=== PATIENT | male | born 2000 | race Caucasian/White ===

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

== ENCOUNTER → 2018-02-04 | Outpatient (CLI) | payer OTHER ==
[~2018-02-04] MED LIST changes: +HUMALOG100 UNIT/2 SQ; +PRILOSEC20 M1 PO; -PRILOSEC20 MG PO
[2018-02-04 16:18] LABS: BILIRUBIN NEGATIVE (NEGATIVE); BLOOD NEGATIVE (NEGATIVE); CLARITY CLEAR (CLEAR); COLOR YELLOW (YELLOW); GLUCOSE 3+ (NEGATIVE); KETONE NEGATIVE (NEGATIVE); LEUKO ESTERASE NEGATIVE (NEGATIVE); NITRITE NEGATIVE (NEGATIVE); PH 5.5 (5.0-9.0); UROBILINOGEN 0.2 E.U./dl (0.2-1.0)
[2018-02-04 16:26] LABS: BACTERIA TRACE; EPITHELIAL CELLS 0-2; WBC 0-2 wbc/hpf (0-5)
[2018-02-04 16:48] LABS: ALBUMIN 3.8 gm/dl (3.1-4.5); BILIRUBIN, DIRECT 0.1 mg/dL (0.0-0.2); BUN 11 mg/dl (7-24); CHLORIDE 97 mmol/L (98-107); CHOLESTEROL 128 mg/dL (<200); CREATININE 0.86 mg/dL (0.70-1.30); HDL CHOLESTEROL 28 mg/dl (40-60); LDL CHOLESTEROL 58 mg/dL (9-159); POTASSIUM 4.4 mmol/L (3.5-5.1); SGOT/AST 8 IU/L (3-35); SGPT/ALT 24 U/L (12-78); SODIUM 135 mmol/L (136-145); TOTAL PROTEIN 7.4 gm/dL (6.4-8.2); TRIGLYCERIDES 209 mg/dl (<150); VLDL CHOLESTEROL 42 mg/dL (6-40)
[2018-02-04 16:54] LABS: ALKALINE PHOSPHATASE 68 U/L (45-117); FREE T4 1.09 ng/dl (0.76-1.46)
== END | disposition home or self-care (01) ==
LOC: LAB 15:49
PROVIDERS: Internal Medicine
DX: E78.5 Hyperlipidemia, unspecified (principal); E11.65 Type 2 diabetes mellitus with hyperglycemia; E04.9 Nontoxic goiter, unspecified; E55.9 Vitamin D deficiency, unspecified

== ENCOUNTER 2018-03-24 11:21 | Emergency (ER) | payer OTHER ==
[~2018-03-24] VITALS: Ht 182.8 cm; Wt 90.7 kg
[2018-03-24 11:23] VITALS: BP 115/63
[2018-03-24 12:47] LABS: HEMATOCRIT 44.1 % (42.0-52.0); HEMOGLOBIN 15.7 g/dl (14.0-18.0); MEAN CELL VOLUME 84.5 fl (80.0-94.0); MEAN CORPUSCULAR HGB 30.1 pg (27.0-31.0); MEAN CORPUSCULAR HGB CONC 35.6 g/dl (33.0-37.0); MEAN PLATELET VOLUME 11.5 fl (9.6-12.3); PLATELET COUNT AUTOMATED 204 10*3/uL (130-400); RED BLOOD COUNT 5.22 10*6/uL (4.50-5.90); RED CELL DISTRI WIDTH 12.1 % (0-14.5); WHITE BLOOD COUNT 5.1 10*3/uL (4.8-10.8)
[2018-03-24 13:00] LABS: ALBUMIN 3.4 gm/dl (3.1-4.5); ALKALINE PHOSPHATASE 88 U/L (45-117); BUN 17 mg/dl (7-24); CHLORIDE 102 mmol/L (98-107); CREATININE 0.74 mg/dL (0.70-1.30); LIPASE 128 U/L (73-393); POTASSIUM 4.5 mmol/L (3.5-5.1); SGOT/AST 21 IU/L (3-35); SGPT/ALT 17 U/L (12-78); SODIUM 135 mmol/L (136-145); TOTAL PROTEIN 6.9 gm/dL (6.4-8.2)
[2018-03-24 13:09] LABS: ATYPICAL LYMPHS 1 % (0-0); BASOPHILS 2 % (0-1); TOTAL CELLS COUNTED 100 #CELLS
[2018-03-24 13:10] LABS: PLATELET SUFFICIENCY NORMAL (NORMAL)
[2018-03-24 13:43] LABS: BILIRUBIN NEGATIVE (NEGATIVE); BLOOD NEGATIVE (NEGATIVE); CLARITY CLEAR (CLEAR); COLOR YELLOW (YELLOW); GLUCOSE 3+ (NEGATIVE); KETONE 1+ (NEGATIVE); LEUKO ESTERASE NEGATIVE (NEGATIVE); NITRITE NEGATIVE (NEGATIVE); SPECIFIC GRAVITY <= 1.005 (1.005-1.030); UROBILINOGEN 0.2 E.U./dl (0.2-1.0)
[2018-03-24 13:51] LABS: BACTERIA TRACE; EPITHELIAL CELLS 0-2; RBC 0-2 rbc/hpf (0-2)
[2018-05-12] MEDS ORDERED: TOUJEO SOL300 UNIT/1 SQ (21:22)
[2018-05-12] MEDS ORDERED: ADMELOG100 UNIT/1 SQ (21:26)
[2018-05-12] MEDS ORDERED: DIALYVITE V5000 UNIT PO (21:26)
[2018-05-12] MEDS ORDERED: ALOGLIPTIN6.25 MG PO (21:27)
== END 2018-03-24 15:21 | disposition home or self-care (01) ==
LOC: ED 11:21
PROVIDERS: Physician Assistant
DX: E10.65 Type 1 diabetes mellitus with hyperglycemia (principal); R10.84 Generalized abdominal pain; Z98.890 Other specified postprocedural states; Z79.4 Long term (current) use of insulin

== ENCOUNTER → 2018-06-02 | Outpatient (CLI) | payer OTHER ==
[~2018-06-02] MED LIST changes: +ADMELOG100 UNIT/1 SQ; +ALOGLIPTIN6.25 MG PO; +DIALYVITE V5000 UNIT PO; +TOUJEO SOL300 UNIT/1 SQ
[2018-06-02 16:02] LABS: BASO # 0.1 10*3/uL (0.0-0.1); BASO % 0.9 % (0.0-1.0); EOS # 0.2 10*3/uL (0.0-0.4); EOS % 2.8 % (1.0-4.0); HEMATOCRIT 45.9 % (42.0-52.0); HEMOGLOBIN 16.7 g/dl (14.0-18.0); LYMPH # 1.6 10*3/uL (1.3-4.4); LYMPH % 30.6 % (27.0-41.0); MEAN CELL VOLUME 85.3 fl (80.0-94.0); MEAN CORPUSCULAR HGB CONC 36.4 g/dl (33.0-37.0); MEAN PLATELET VOLUME 11.6 fl (9.6-12.3); MONO # 0.5 10*3/uL (0.1-1.0); MONO % 9.4 % (3.0-9.0); NEUT % 55.9 % (47.0-73.0); PLATELET COUNT AUTOMATED 207 10*3/uL (130-400); RED BLOOD COUNT 5.38 10*6/uL (4.50-5.90); RED CELL DISTRI WIDTH 11.5 % (0-14.5); WHITE BLOOD COUNT 5.3 10*3/uL (4.8-10.8)
[2018-06-02 16:22] LABS: ALBUMIN 3.7 gm/dl (3.1-4.5); ALKALINE PHOSPHATASE 174 U/L (45-117); BUN 26 mg/dl (7-24); CHLORIDE 88 mmol/L (98-107); CREATININE 0.91 mg/dL (0.70-1.30); POTASSIUM 4.6 mmol/L (3.5-5.1); SGOT/AST 12 IU/L (3-35); SGPT/ALT 17 U/L (12-78); SODIUM 128 mmol/L (136-145); TOTAL PROTEIN 7.4 gm/dL (6.4-8.2)
== END | disposition home or self-care (01) ==
LOC: LAB 15:25
PROVIDERS: Internal Medicine
DX: M54.9 Dorsalgia, unspecified (principal); M54.2 Cervicalgia

== ENCOUNTER 2018-06-30 15:02 | Emergency (ER) | payer OTHER ==
[~2018-06-30] VITALS: Wt 81.6 kg
[2018-06-30 15:05] VITALS: BP 115/61
[2018-06-30 17:19] LABS: BASO % 0.3 % (0.0-1.0); EOS # 0.1 10*3/uL (0.0-0.4); EOS % 0.7 % (1.0-4.0); HEMATOCRIT 48.2 % (42.0-52.0); HEMOGLOBIN 17.3 g/dl (14.0-18.0); LYMPH # 0.9 10*3/uL (1.3-4.4); LYMPH % 8.3 % (27.0-41.0); MEAN CELL VOLUME 86.5 fl (80.0-94.0); MEAN CORPUSCULAR HGB 31.1 pg (27.0-31.0); MEAN CORPUSCULAR HGB CONC 35.9 g/dl (33.0-37.0); MEAN PLATELET VOLUME 10.8 fl (9.6-12.3); MONO # 0.8 10*3/uL (0.1-1.0); MONO % 6.9 % (3.0-9.0); NEUT # 9.4 10*3/uL (2.3-7.9); NEUT % 83.4 % (47.0-73.0); PLATELET COUNT AUTOMATED 223 10*3/uL (130-400); RED BLOOD COUNT 5.57 10*6/uL (4.50-5.90); WHITE BLOOD COUNT 11.3 10*3/uL (4.8-10.8)
[2018-06-30 17:20] LABS: ABG BASE EXCESS -6.9 mmol/L (-2.0-2.0); ABG HCO3 17.7 mmol/l (22-26); ABG O2 SATURATION 99.2 % (95-97); ARTERIAL BLOOD GAS PCO2 33.2 mmHg (35-45); ARTERIAL BLOOD GAS PH 7.341 (7.35-7.45)
[2018-06-30 17:27] LABS: INTERNATIONAL NORM RATIO 0.9 (2.0-3.5)
[2018-06-30 17:36] LABS: ALBUMIN 3.5 gm/dl (3.1-4.5); ALKALINE PHOSPHATASE 98 U/L (45-117); BUN 15 mg/dl (7-24); CHLORIDE 101 mmol/L (98-107); CREATININE 0.85 mg/dL (0.70-1.30); LIPASE 82 U/L (73-393); POTASSIUM 4.2 mmol/L (3.5-5.1); SGOT/AST 11 IU/L (3-35); SGPT/ALT 24 U/L (12-78); SODIUM 135 mmol/L (136-145); TOTAL PROTEIN 7.7 gm/dL (6.4-8.2)
[2018-06-30 17:37] LABS: TROPONIN I < 0.015 ng/ml (<0.045)
[2018-06-30 18:19] LABS: BILIRUBIN 2+ (NEGATIVE); BLOOD NEGATIVE (NEGATIVE); CLARITY CLEAR (CLEAR); COLOR YELLOW (YELLOW); GLUCOSE 3+ (NEGATIVE); KETONE 3+ (NEGATIVE); LEUKO ESTERASE NEGATIVE (NEGATIVE); NITRITE NEGATIVE (NEGATIVE); SPECIFIC GRAVITY 1.015 (1.005-1.030); UROBILINOGEN 0.2 E.U./dl (0.2-1.0)
[2018-06-30 18:27] LABS: EPITHELIAL CELLS 0-2; MUCOUS 1+; WBC 0-2 wbc/hpf (0-5)
== END 2018-06-30 18:27 | disposition left against medical advice (07) ==
LOC: ED 15:02
PROVIDERS: Physician Assistant
DX: R11.10 Vomiting, unspecified (principal); R19.7 Diarrhea, unspecified; R05 Cough; R10.84 Generalized abdominal pain; E10.9 Type 1 diabetes mellitus without complications; Z79.899 Other long term (current) drug therapy; Z79.4 Long term (current) use of insulin

== ENCOUNTER 2018-12-01 14:32 | Emergency (ER) | payer OTHER ==
[~2018-12-01] VITALS: Ht 182.8 cm; Wt 80.7 kg
[2018-12-01 14:33] VITALS: BP 107/64
[2018-12-01] MEDS ORDERED: DOXYCYCLINE100 M3 PO (14:43)
== END 2018-12-01 15:02 | disposition home or self-care (01) ==
LOC: ED 14:32
DX: L02.414 Cutaneous abscess of left upper limb (principal); E11.9 Type 2 diabetes mellitus without complications; Z79.899 Other long term (current) drug therapy

== ENCOUNTER 2019-02-16 13:48 | Emergency (ER) | payer OTHER ==
[~2019-02-16] VITALS: Wt 59.0 kg
--- NOTE | ~2019-02-16 | EKG ---
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
[~2019-02-16 13:48] MED LIST changes: +DOXYCYCLINE100 M3 PO
[2019-02-16 14:15] LABS: BASO % 0.6 % (0.0-1.0); EOS # 0.1 10*3/uL (0.0-0.4); EOS % 2.5 % (1.0-4.0); HEMATOCRIT 40.8 % (42.0-52.0); HEMOGLOBIN 14.7 g/dl (14.0-18.0); LYMPH # 1.4 10*3/uL (1.3-4.4); LYMPH % 26.4 % (27.0-41.0); MEAN CELL VOLUME 87.4 fl (80.0-94.0); MEAN CORPUSCULAR HGB 31.5 pg (27.0-31.0); MEAN PLATELET VOLUME 11.3 fl (9.6-12.3); MONO # 0.5 10*3/uL (0.1-1.0); MONO % 8.6 % (3.0-9.0); NEUT # 3.3 10*3/uL (2.3-7.9); NEUT % 61.7 % (47.0-73.0); PLATELET COUNT AUTOMATED 187 10*3/uL (130-400); RED BLOOD COUNT 4.67 10*6/uL (4.50-5.90); RED CELL DISTRI WIDTH 11.9 % (0-14.5); WHITE BLOOD COUNT 5.3 10*3/uL (4.8-10.8)
[2019-02-16 14:25] LABS: ACT PARTIAL THROMBO TIME 26.5 SECONDS (20.0-32.1)
[2019-02-16 14:35] LABS: ALBUMIN 3.5 gm/dl (3.1-4.5); ALKALINE PHOSPHATASE 106 U/L (45-117); BUN 20 mg/dl (7-24); CHLORIDE 101 mmol/L (98-107); CREATININE 0.74 mg/dL (0.70-1.30); LIPASE 114 U/L (73-393); POTASSIUM 4.5 mmol/L (3.5-5.1); SGOT/AST 8 IU/L (3-35); SGPT/ALT 12 U/L (12-78); SODIUM 132 mmol/L (136-145); TOTAL PROTEIN 6.1 gm/dL (6.4-8.2)
[2019-02-16 14:52] LABS: TROPONIN I < 0.015 ng/ml (<0.045)
[2019-02-16 15:28] LABS: BILIRUBIN NEGATIVE (NEGATIVE); BLOOD NEGATIVE (NEGATIVE); CLARITY CLEAR (CLEAR); COLOR YELLOW (YELLOW); GLUCOSE 3+ (NEGATIVE); KETONE NEGATIVE (NEGATIVE); LEUKO ESTERASE NEGATIVE (NEGATIVE); NITRITE NEGATIVE (NEGATIVE); SPECIFIC GRAVITY <= 1.005 (1.005-1.030); UROBILINOGEN 0.2 E.U./dl (0.2-1.0)
[2019-02-16 16:00] VITALS: BP 113/61
== END 2019-02-16 17:30 | disposition home or self-care (01) ==
LOC: ED 13:48
PROVIDERS: Emergency Medicine
DX: E11.65 Type 2 diabetes mellitus with hyperglycemia (principal); K21.9 Gastro-esophageal reflux disease without esophagitis; Z79.2 Long term (current) use of antibiotics; Z79.899 Other long term (current) drug therapy

== ENCOUNTER → 2019-02-21 | Outpatient (CLI) | payer OTHER ==
[~2019-02-21] MED LIST changes: +AVPAK AZITHROM250 MG PO
[2019-02-21 17:13] LABS: ALBUMIN 4.2 gm/dl (3.1-4.5); ALKALINE PHOSPHATASE 61 U/L (45-117); BUN 18 mg/dl (7-24); CHLORIDE 97 mmol/L (98-107); CHOLESTEROL 150 mg/dL (<200); CREATININE 0.76 mg/dL (0.70-1.30); HDL CHOLESTEROL 43 mg/dl (40-60); LDL CHOLESTEROL 87 mg/dL (9-159); SGOT/AST 6 IU/L (3-35); SGPT/ALT 12 U/L (12-78); SODIUM 132 mmol/L (136-145); TOTAL PROTEIN 7.5 gm/dL (6.4-8.2); TRIGLYCERIDES 101 mg/dl (<150); VLDL CHOLESTEROL 20 mg/dL (6-40)
[2019-02-22 11:08] LABS: CREATININE,URINE 107.2 mg/dL (Not Estab.); MICRO ALBUMIN/CRE RATIO 4.9 (0.0-30.0)
[2019-02-23 15:06] LABS: GLUTAMIC ACID DECARB AB 143008 36.7 U/mL (0.0-5.0)
== END | disposition home or self-care (01) ==
LOC: LAB 16:00
PROVIDERS: Internal Medicine Endocrinology, Diabetes & Metabolism
DX: E10.65 Type 1 diabetes mellitus with hyperglycemia (principal); E55.9 Vitamin D deficiency, unspecified

== ENCOUNTER 2019-03-02 07:29 | Emergency (ER) | payer OTHER ==
[~2019-03-02] VITALS: Ht 182.8 cm; Wt 80.7 kg
--- NOTE | ~2019-03-02 | EKG ---
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
[~2019-03-02 07:29] MED LIST changes: -AVPAK AZITHROM250 MG PO
[2019-03-02 08:12] LABS: BASO % 0.9 % (0.0-1.0); EOS # 0.2 10*3/uL (0.0-0.4); EOS % 4.7 % (1.0-4.0); HEMATOCRIT 44.6 % (42.0-52.0); HEMOGLOBIN 15.7 g/dl (14.0-18.0); LYMPH # 1.5 10*3/uL (1.3-4.4); LYMPH % 32.6 % (27.0-41.0); MEAN CELL VOLUME 88.7 fl (80.0-94.0); MEAN CORPUSCULAR HGB 31.2 pg (27.0-31.0); MEAN CORPUSCULAR HGB CONC 35.2 g/dl (33.0-37.0); MONO # 0.4 10*3/uL (0.1-1.0); MONO % 9.8 % (3.0-9.0); NEUT # 2.3 10*3/uL (2.3-7.9); NEUT % 51.8 % (47.0-73.0); PLATELET COUNT AUTOMATED 202 10*3/uL (130-400); RED BLOOD COUNT 5.03 10*6/uL (4.50-5.90); RED CELL DISTRI WIDTH 12.2 % (0-14.5); WHITE BLOOD COUNT 4.5 10*3/uL (4.8-10.8)
[2019-03-02 08:22] LABS: ACT PARTIAL THROMBO TIME 26.9 SECONDS (20.0-32.1)
[2019-03-02 08:27] LABS: ALBUMIN 3.5 gm/dl (3.1-4.5); ALKALINE PHOSPHATASE 52 U/L (45-117); BUN 10 mg/dl (7-24); CHLORIDE 108 mmol/L (98-107); CREATININE 0.67 mg/dL (0.70-1.30); LIPASE 87 U/L (73-393); POTASSIUM 3.4 mmol/L (3.5-5.1); SGOT/AST 6 IU/L (3-35); SGPT/ALT 13 U/L (12-78); SODIUM 141 mmol/L (136-145); TOTAL PROTEIN 6.4 gm/dL (6.4-8.2)
[2019-03-02 08:33] LABS: TROPONIN I < 0.015 ng/ml (<0.045)
[2019-03-02 08:45] LABS: BILIRUBIN NEGATIVE (NEGATIVE); BLOOD NEGATIVE (NEGATIVE); CLARITY CLEAR (CLEAR); COLOR YELLOW (YELLOW); GLUCOSE 3+ (NEGATIVE); KETONE NEGATIVE (NEGATIVE); LEUKO ESTERASE NEGATIVE (NEGATIVE); NITRITE NEGATIVE (NEGATIVE); UROBILINOGEN 0.2 E.U./dl (0.2-1.0)
[2019-03-02 09:03] LABS: EPITHELIAL CELLS 0-2; RBC 0-2 rbc/hpf (0-2); WBC 0-2 wbc/hpf (0-5)
[2019-03-02 14:48] VITALS: BP 106/57
[2019-03-03] MEDS ORDERED: AVPAK AZITHROM250 MG PO (16:44)
== END 2019-03-02 14:48 | disposition home or self-care (01) ==
LOC: ED 07:29
PROVIDERS: Emergency Medicine
DX: R06.00 Dyspnea, unspecified (principal); R07.89 Other chest pain; R19.7 Diarrhea, unspecified; I10 Essential (primary) hypertension; E10.9 Type 1 diabetes mellitus without complications; K21.9 Gastro-esophageal reflux disease without esophagitis; F17.200 Nicotine dependence, unspecified, uncomplicated; Z79.2 Long term (current) use of antibiotics; Z79.4 Long term (current) use of insulin

== ENCOUNTER 2019-03-03 13:24 | Emergency (ER) | payer OTHER ==
[~2019-03-03] VITALS: Wt 80.7 kg
--- NOTE | ~2019-03-03 | EKG ---
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
[2019-03-03 13:27] VITALS: BP 107/62
[2019-03-03 13:58] LABS: BASO # 0.1 10*3/uL (0.0-0.1); BASO % 1.1 % (0.0-1.0); EOS # 0.2 10*3/uL (0.0-0.4); HEMATOCRIT 47.2 % (42.0-52.0); HEMOGLOBIN 16.4 g/dl (14.0-18.0); LYMPH # 1.6 10*3/uL (1.3-4.4); LYMPH % 30.2 % (27.0-41.0); MEAN CELL VOLUME 89.1 fl (80.0-94.0); MEAN CORPUSCULAR HGB 30.9 pg (27.0-31.0); MEAN CORPUSCULAR HGB CONC 34.7 g/dl (33.0-37.0); MEAN PLATELET VOLUME 11.1 fl (9.6-12.3); MONO # 0.5 10*3/uL (0.1-1.0); MONO % 9.5 % (3.0-9.0); NEUT # 2.9 10*3/uL (2.3-7.9); NEUT % 55.8 % (47.0-73.0); PLATELET COUNT AUTOMATED 238 10*3/uL (130-400); RED CELL DISTRI WIDTH 12.2 % (0-14.5); WHITE BLOOD COUNT 5.3 10*3/uL (4.8-10.8)
[2019-03-03 14:07] LABS: ACT PARTIAL THROMBO TIME 25.8 SECONDS (20.0-32.1); INTERNATIONAL NORM RATIO 0.9 (2.0-3.5)
[2019-03-03 14:14] LABS: ALBUMIN 3.6 gm/dl (3.1-4.5); ALKALINE PHOSPHATASE 69 U/L (45-117); BUN 10 mg/dl (7-24); CHLORIDE 105 mmol/L (98-107); CREATININE 0.69 mg/dL (0.70-1.30); LIPASE 82 U/L (73-393); POTASSIUM 4.1 mmol/L (3.5-5.1); SGOT/AST 5 IU/L (3-35); SGPT/ALT 13 U/L (12-78); SODIUM 139 mmol/L (136-145); TOTAL PROTEIN 6.9 gm/dL (6.4-8.2)
[2019-03-03 14:15] LABS: TROPONIN I < 0.015 ng/ml (<0.045)
[2019-03-03 14:40] LABS: BILIRUBIN NEGATIVE (NEGATIVE); BLOOD NEGATIVE (NEGATIVE); CLARITY CLEAR (CLEAR); COLOR YELLOW (YELLOW); GLUCOSE 3+ (NEGATIVE); KETONE NEGATIVE (NEGATIVE); LEUKO ESTERASE NEGATIVE (NEGATIVE); NITRITE NEGATIVE (NEGATIVE); UROBILINOGEN 0.2 E.U./dl (0.2-1.0)
[2019-03-03 14:56] LABS: EPITHELIAL CELLS 0-2
[2019-03-03] MEDS ORDERED: AVPAK AZITHROM250 MG PO (16:44)
== END 2019-03-03 16:50 | disposition home or self-care (01) ==
LOC: ED 13:24
PROVIDERS: Nurse Practitioner Family
DX: R09.1 Pleurisy (principal); R07.89 Other chest pain; R11.2 Nausea with vomiting, unspecified; E10.9 Type 1 diabetes mellitus without complications; E78.5 Hyperlipidemia, unspecified; K21.9 Gastro-esophageal reflux disease without esophagitis; Z79.899 Other long term (current) drug therapy

== ENCOUNTER 2019-03-31 15:35 | Emergency (ER) | payer OTHER ==
[~2019-03-31] VITALS: Ht 182.8 cm; Wt 81.6 kg
[~2019-03-31 15:35] MED LIST changes: +AVPAK AZITHROM250 MG PO
[2019-03-31 15:38] VITALS: BP 113/63
[2019-03-31 16:44] LABS: BASO # 0.1 10*3/uL (0.0-0.1); BASO % 1.3 % (0.0-1.0); EOS # 0.2 10*3/uL (0.0-0.4); EOS % 2.8 % (1.0-4.0); HEMATOCRIT 41.9 % (42.0-52.0); HEMOGLOBIN 15.3 g/dl (14.0-18.0); LYMPH # 1.7 10*3/uL (1.3-4.4); MEAN CELL VOLUME 86.2 fl (80.0-94.0); MEAN CORPUSCULAR HGB 31.5 pg (27.0-31.0); MEAN CORPUSCULAR HGB CONC 36.5 g/dl (33.0-37.0); MEAN PLATELET VOLUME 11.6 fl (9.6-12.3); MONO # 0.5 10*3/uL (0.1-1.0); MONO % 9.9 % (3.0-9.0); NEUT # 2.9 10*3/uL (2.3-7.9); NEUT % 53.8 % (47.0-73.0); PLATELET COUNT AUTOMATED 225 10*3/uL (130-400); RED BLOOD COUNT 4.86 10*6/uL (4.50-5.90); RED CELL DISTRI WIDTH 11.9 % (0-14.5); WHITE BLOOD COUNT 5.4 10*3/uL (4.8-10.8)
[2019-03-31 17:01] LABS: ALBUMIN 3.5 gm/dl (3.1-4.5); ALKALINE PHOSPHATASE 72 U/L (45-117); BUN 15 mg/dl (7-24); CHLORIDE 100 mmol/L (98-107); CREATININE 0.73 mg/dL (0.70-1.30); POTASSIUM 3.9 mmol/L (3.5-5.1); SGOT/AST 7 IU/L (3-35); SGPT/ALT 13 U/L (12-78); SODIUM 137 mmol/L (136-145); TOTAL PROTEIN 6.2 gm/dL (6.4-8.2)
[2019-03-31 17:13] LABS: BILIRUBIN NEGATIVE (NEGATIVE); BLOOD NEGATIVE (NEGATIVE); CLARITY CLEAR (CLEAR); COLOR YELLOW (YELLOW); GLUCOSE 3+ (NEGATIVE); KETONE NEGATIVE (NEGATIVE); LEUKO ESTERASE NEGATIVE (NEGATIVE); NITRITE NEGATIVE (NEGATIVE); PH 6.5 (5.0-9.0); SPECIFIC GRAVITY <= 1.005 (1.005-1.030); UROBILINOGEN 0.2 E.U./dl (0.2-1.0)
[2019-03-31 17:24] LABS: EPITHELIAL CELLS 0-2
== END 2019-03-31 17:50 | disposition home or self-care (01) ==
LOC: ED 15:35
PROVIDERS: Nurse Practitioner Family
DX: E10.65 Type 1 diabetes mellitus with hyperglycemia (principal); R11.2 Nausea with vomiting, unspecified; K21.9 Gastro-esophageal reflux disease without esophagitis; Z79.4 Long term (current) use of insulin; Z79.899 Other long term (current) drug therapy; Z79.84 Long term (current) use of oral hypoglycemic drugs

== ENCOUNTER 2019-07-05 11:28 | Emergency (ER) | payer SELFPAY ==
[~2019-07-05] VITALS: Ht 182.8 cm; Wt 79.8 kg
[2019-07-05 12:20] LABS: BASO # 0.1 10*3/uL (0.0-0.1); EOS # 0.1 10*3/uL (0.0-0.4); EOS % 2.4 % (1.0-4.0); HEMOGLOBIN 17.1 g/dl (14.0-18.0); LYMPH # 1.6 10*3/uL (1.3-4.4); LYMPH % 27.2 % (27.0-41.0); MEAN CELL VOLUME 86.1 fl (80.0-94.0); MEAN CORPUSCULAR HGB 31.3 pg (27.0-31.0); MEAN CORPUSCULAR HGB CONC 36.4 g/dl (33.0-37.0); MONO # 0.5 10*3/uL (0.1-1.0); MONO % 8.7 % (3.0-9.0); NEUT # 3.6 10*3/uL (2.3-7.9); NEUT % 60.4 % (47.0-73.0); PLATELET COUNT AUTOMATED 227 10*3/uL (130-400); RED BLOOD COUNT 5.46 10*6/uL (4.50-5.90); RED CELL DISTRI WIDTH 11.8 % (0-14.5)
[2019-07-05 12:37] LABS: ALKALINE PHOSPHATASE 107 U/L (45-117); BUN 15 mg/dl (7-24); CHLORIDE 96 mmol/L (98-107); POTASSIUM 4.3 mmol/L (3.5-5.1); SGOT/AST 8 IU/L (3-35); SGPT/ALT 22 U/L (12-78); SODIUM 133 mmol/L (136-145); TOTAL PROTEIN 7.1 gm/dL (6.4-8.2)
[2019-07-05 12:41] LABS: INTERNATIONAL NORM RATIO 0.9 (2.0-3.5); TROPONIN I < 0.015 ng/ml (<0.045)
[2019-07-05 14:29] VITALS: BP 118/76
== END 2019-07-05 15:15 | disposition home or self-care (01) ==
LOC: ED 11:28
PROVIDERS: Physician Assistant
DX: E10.65 Type 1 diabetes mellitus with hyperglycemia (principal); R06.02 Shortness of breath; K21.9 Gastro-esophageal reflux disease without esophagitis; Z79.4 Long term (current) use of insulin; Z79.899 Other long term (current) drug therapy

== ENCOUNTER 2019-08-14 00:42 | Inpatient (IN) | payer OTHER ==
[~2019-08-14] VITALS: Ht 182.9 cm; Wt 78.5 kg
[2019-08-14] VITALS (8 sets, daily range): BP systolic 101–125; BP diastolic 43–66
[2019-08-14 01:22] LABS: BASO # 0.1 10*3/uL (0.0-0.1); BASO % 0.8 % (0.0-1.0); EOS # 0.2 10*3/uL (0.0-0.4); EOS % 3.7 % (1.0-4.0); HEMOGLOBIN 15.4 g/dl (14.0-18.0); LYMPH % 32.7 % (27.0-41.0); MEAN CELL VOLUME 85.7 fl (80.0-94.0); MEAN CORPUSCULAR HGB 30.7 pg (27.0-31.0); MEAN CORPUSCULAR HGB CONC 35.8 g/dl (33.0-37.0); MONO # 0.5 10*3/uL (0.1-1.0); MONO % 8.5 % (3.0-9.0); NEUT # 3.2 10*3/uL (2.3-7.9); NEUT % 53.8 % (47.0-73.0); PLATELET COUNT AUTOMATED 201 10*3/uL (130-400); RED BLOOD COUNT 5.02 10*6/uL (4.50-5.90)
[2019-08-14 01:41] LABS: ALBUMIN 3.3 gm/dl (3.1-4.5); ALKALINE PHOSPHATASE 88 U/L (45-117); BUN 15 mg/dl (7-24); CHLORIDE 100 mmol/L (98-107); CREATININE 1.13 mg/dL (0.70-1.30); LIPASE 76 U/L (73-393); POTASSIUM 4.2 mmol/L (3.5-5.1); SGOT/AST 11 IU/L (3-35); SODIUM 132 mmol/L (136-145); TOTAL PROTEIN 6.6 gm/dL (6.4-8.2)
[2019-08-14 01:44] LABS: SGPT/ALT 19 U/L (12-78)
[2019-08-14 01:50] LABS: URINE AMPHETAMINES < 1000 (1000ng/ml); URINE BARBITURATES < 200 (200ng/ml); URINE BENZODIAZEPINES < 200 (200ng/ml); URINE CANNABINOIDS (THC) < 50 (50ng/ml); URINE COCAINE < 300 (300ng/ml); URINE METHADONE < 300 (300ng/ml); URINE OPIATES < 300 (300ng/ml)
[2019-08-14 01:52] LABS: URINE PHENCYCLIDINE < 25 (25ng/ml)
[2019-08-14 02:16] LABS: BILIRUBIN 1+ (NEGATIVE); BLOOD NEGATIVE (NEGATIVE); CLARITY CLEAR (CLEAR); COLOR YELLOW (YELLOW); GLUCOSE 3+ (NEGATIVE); KETONE 3+ (NEGATIVE); LEUKO ESTERASE NEGATIVE (NEGATIVE); NITRITE NEGATIVE (NEGATIVE); UROBILINOGEN 0.2 E.U./dl (0.2-1.0)
[2019-08-14 02:26] LABS: BACTERIA TRACE
--- NOTE | 2019-08-14 03:24 | NUR ---
A 18, admitted to ICCU, under the services of SHANE Baez MD with a diagnosis of DKA. Chief complaint is COUGH,CONGESTION,SOB AT TIMES,NAUSEA. Patient arrived via stretcher from ER. Monitor applied. Initial assessment completed. Vital signs taken and recorded. SHANE BAEZ MD notified of admission to the unit. Orders received. See assessment for past medical history, medications and allergies. Patient and/or family oriented to unit. [facility] ICCU visitation policy reviewed. Clothing/patient valuable form completed. ADY CARRERA
[2019-08-14 06:52] LABS: BUN 12 mg/dl (7-24); CHLORIDE 110 mmol/L (98-107); CREATININE 0.77 mg/dL (0.70-1.30); POTASSIUM 2.9 mmol/L (3.5-5.1); SODIUM 139 mmol/L (136-145)
--- NOTE | 2019-08-14 07:31 | NUR ---
Shift chart check completed.24 HR chart check completed.
--- NOTE | 2019-08-14 08:32 | NUR ---
ON ASSESSMENT PT DROWSY BUT AROUSABLE. IV D5.45NS CONTINUES AT 150/HR. DR DIAZ WAS NOTIFIED EARLIER OF K+ LEVEL OF 2.9. PT TOOK 40MEQ BY MOUTH AND FIRST OF TWO K-RIDERS UP TO INFUSE. INSULIN DRIP CONTINUES AT 8 UNITS/HR. NO C/O NAUSEA OR VOMITING. BREAKFAST ORDERED. SEE ALL APPROPRIATE INTERVENTIONS.
[2019-08-14 08:51] LABS: BILIRUBIN NEGATIVE (NEGATIVE); BLOOD NEGATIVE (NEGATIVE); CLARITY CLEAR (CLEAR); COLOR YELLOW (YELLOW); GLUCOSE 3+ (NEGATIVE); KETONE 3+ (NEGATIVE); LEUKO ESTERASE NEGATIVE (NEGATIVE); NITRITE NEGATIVE (NEGATIVE); UROBILINOGEN 0.2 E.U./dl (0.2-1.0)
[2019-08-14 08:59] LABS: BACTERIA TRACE; EPITHELIAL CELLS 0-2; MUCOUS 1+; RBC 0-2 rbc/hpf (0-2); WBC 0-2 wbc/hpf (0-5)
--- NOTE | 2019-08-14 09:04 | NUR ---
PT ATE ALL OF HIS BREAKFAST. INSULIN DRIP TO 5UNITS/HR FOR BSBS OF 167.
[2019-08-14 10:27] LABS: BUN 9 mg/dl (7-24); CHLORIDE 113 mmol/L (98-107); CREATININE 0.79 mg/dL (0.70-1.30); POTASSIUM 3.6 mmol/L (3.5-5.1); SODIUM 140 mmol/L (136-145)
[2019-08-14 14:29] LABS: BUN 7 mg/dl (7-24); CHLORIDE 111 mmol/L (98-107); POTASSIUM 3.8 mmol/L (3.5-5.1); SODIUM 139 mmol/L (136-145)
--- NOTE | 2019-08-14 17:41 | NUR ---
PT ATE 100% ON DINNER. LANTUS INSULIN GIVEN AND IVF'S AND INSULIN GTT DC'D AT THIS TIME.
--- NOTE | 2019-08-14 17:43 | NUR ---
PT MEDICATED WITH TYLENOL FOR C/O HEADACHE PAIN.
--- NOTE | 2019-08-14 20:00 | NUR ---
PT RESTING IN BED WITH EYES CLOSED, AWAKENS WITH EASE, A&OX3, PLEASANT AND COOPERATIVE. RESP NONLABORED. NO ACUTE DISTRESS NOTED. NO COMPLAINTS VOICED. HEPLOCK PATENT. SO S/S OF HYPO/HYPERGLYCEMAI NOTED.
[2019-08-15] VITALS: BP 125/56
--- NOTE | 2019-08-15 01:00 | NUR ---
PT C/O SEVERE ABD PAIN. SAID IT STARTED WHEN TRYING TO HAVE A BOWEL MOVEMENT AND WASN'T ABLE TO GO VERY WELL. MEDICATED WITH TYLENOL AND MOM AND PT THREW UP. DR DIAZ NOTIFIED AND ORDER FOR ZOFRAN 4MG IV X1 NOW AND STAT KUB. MEDICATED WITH ZOFRAN ORDERED.
--- NOTE | 2019-08-15 02:00 | NUR ---
PT UP TO BATHROOM AND SAID HE HAD A BOWEL MOVEMENT AND SAID HE WAS FEELING BETTER.
[2019-08-15 04:00] VITALS: BP 94/45
[2019-08-15 08:00] VITALS: BP 101/53
[2019-08-15 12:00] VITALS: BP 109/62
[2019-08-15] MEDS ORDERED: TOUJEO SOL300 UNIT/1 SQ (13:13)
[2019-08-15] MEDS ORDERED: ADMELOG100 UNIT/1 SQ (13:14)
[2019-08-15] MEDS ORDERED: DOXYCYCLINE100 M3 PO (13:17)
--- NOTE | 2019-08-15 14:15 | NUR ---
PATIENT DISCHARGED TO HOME. ALL PERSONAL BELONGINGS SENT WITH PATIENT. IV AND SAMPLE COLOR MAKER DISCONTINUED. DISCHARGE INSTRUCTIONS GIVEN AND REVIEWED WITH PATIENT. PATIENT INFORMED THAT TWO PRESCRIPTIONS WERE SENT TO HIS PHARMACY.
== END 2019-08-15 14:15 | disposition home or self-care (01) | DRG 420 ==
LOC: ED 00:42 → ICCU 02:02 → EDHOLD 02:02 → ICCU 02:09
PROVIDERS: Nurse Practitioner Family; ADMIT Internal Medicine
DX: E10.10 Type 1 diabetes mellitus with ketoacidosis without coma (principal); R09.1 Pleurisy; R06.00 Dyspnea, unspecified; R07.89 Other chest pain; E55.9 Vitamin D deficiency, unspecified; K21.9 Gastro-esophageal reflux disease without esophagitis; Z83.3 Family history of diabetes mellitus; Z79.899 Other long term (current) drug therapy; Z82.49 Family history of ischemic heart disease and other diseases of the circulatory system; Z82.3 Family history of stroke

== ENCOUNTER 2019-09-28 21:27 | Inpatient (IN) | payer OTHER ==
[~2019-09-28] VITALS: Ht 182.8 cm; Wt 74.5 kg
[2019-09-28 21:35] VITALS: BP 150/85
[2019-09-28 22:00] VITALS: BP 144/88
[2019-09-28 22:30] VITALS: BP 138/84
[2019-09-28 22:31] LABS: ABG BASE EXCESS -28.3 mmol/L (-2.0-2.0); ARTERIAL BLOOD GAS PH 7.087 (7.35-7.45)
[2019-09-28 22:51] LABS: BASO # 0.1 10*3/uL (0.0-0.1); EOS # 0.1 10*3/uL (0.0-0.4); EOS % 0.9 % (1.0-4.0); HEMATOCRIT 54.2 % (42.0-52.0); HEMOGLOBIN 18.7 g/dl (14.0-18.0); LYMPH # 1.2 10*3/uL (1.3-4.4); MEAN CORPUSCULAR HGB 31.1 pg (27.0-31.0); MEAN CORPUSCULAR HGB CONC 34.5 g/dl (33.0-37.0); MEAN PLATELET VOLUME 11.2 fl (9.6-12.3); MONO # 0.6 10*3/uL (0.1-1.0); MONO % 5.4 % (3.0-9.0); NEUT # 8.7 10*3/uL (2.3-7.9); NEUT % 80.2 % (47.0-73.0); PLATELET COUNT AUTOMATED 261 10*3/uL (130-400); RED BLOOD COUNT 6.02 10*6/uL (4.50-5.90); RED CELL DISTRI WIDTH 13.4 % (0-14.5); WHITE BLOOD COUNT 10.8 10*3/uL (4.8-10.8)
[2019-09-28 23:00] VITALS: BP 137/89
[2019-09-28 23:06] LABS: ALBUMIN 4.1 gm/dl (3.1-4.5); ALKALINE PHOSPHATASE 87 U/L (45-117); BUN 8 mg/dl (7-24); CHLORIDE 102 mmol/L (98-107); CREATININE 1.16 mg/dL (0.70-1.30); POTASSIUM 3.9 mmol/L (3.5-5.1); SGOT/AST 8 IU/L (3-35); SGPT/ALT 21 U/L (12-78); SODIUM 132 mmol/L (136-145); TOTAL PROTEIN 8.4 gm/dL (6.4-8.2)
[2019-09-28 23:30] VITALS: BP 136/83
[2019-09-29] VITALS (8 sets, daily range): BP systolic 93–131; BP diastolic 47–90
[2019-09-29] MEDS ORDERED: TOUJEO SOL300 UNIT/1 SC (01:08)
[2019-09-29] MEDS ORDERED: TRULICITY1.5 MG/0.5 SC (01:11)
[2019-09-29 01:14] LABS: BACTERIA 2+; BILIRUBIN NEGATIVE (NEGATIVE); BLOOD 1+ (NEGATIVE); CLARITY CLEAR (CLEAR); COLOR YELLOW (YELLOW); GLUCOSE 2+ (NEGATIVE); KETONE 2+ (NEGATIVE); LEUKO ESTERASE NEGATIVE (NEGATIVE); NITRITE NEGATIVE (NEGATIVE); UROBILINOGEN 0.2 E.U./dl (0.2-1.0)
[2019-09-29 02:04] LABS: ALBUMIN 3.1 gm/dl (3.1-4.5); ALKALINE PHOSPHATASE 62 U/L (45-117); BUN 7 mg/dl (7-24); CHLORIDE 109 mmol/L (98-107); CREATININE 0.88 mg/dL (0.70-1.30); POTASSIUM 3.8 mmol/L (3.5-5.1); SGOT/AST 6 IU/L (3-35); SGPT/ALT 14 U/L (12-78); SODIUM 136 mmol/L (136-145); TOTAL PROTEIN 6.3 gm/dL (6.4-8.2)
[2019-09-29 05:11] LABS: ALBUMIN 2.9 gm/dl (3.1-4.5); ALKALINE PHOSPHATASE 58 U/L (45-117); BUN 6 mg/dl (7-24); CHLORIDE 109 mmol/L (98-107); CREATININE 0.79 mg/dL (0.70-1.30); POTASSIUM 3.8 mmol/L (3.5-5.1); SGOT/AST 5 IU/L (3-35); SGPT/ALT 15 U/L (12-78); SODIUM 136 mmol/L (136-145)
[2019-09-29 08:15] LABS: ALBUMIN 2.9 gm/dl (3.1-4.5); ALKALINE PHOSPHATASE 57 U/L (45-117); BUN 6 mg/dl (7-24); CHLORIDE 108 mmol/L (98-107); CREATININE 0.88 mg/dL (0.70-1.30); POTASSIUM 3.6 mmol/L (3.5-5.1); SGOT/AST 7 IU/L (3-35); SGPT/ALT 13 U/L (12-78); SODIUM 135 mmol/L (136-145)
[2019-09-29 12:07] LABS: ALBUMIN 2.8 gm/dl (3.1-4.5); ALKALINE PHOSPHATASE 55 U/L (45-117); BUN 5 mg/dl (7-24); CHLORIDE 110 mmol/L (98-107); CREATININE 0.83 mg/dL (0.70-1.30); POTASSIUM 2.8 mmol/L (3.5-5.1); SGOT/AST 4 IU/L (3-35); SGPT/ALT 12 U/L (12-78); SODIUM 137 mmol/L (136-145); TOTAL PROTEIN 5.7 gm/dL (6.4-8.2)
[2019-09-30] VITALS: BP 90/42
[2019-09-30 06:09] LABS: ALBUMIN 2.9 gm/dl (3.1-4.5); ALKALINE PHOSPHATASE 60 U/L (45-117); BUN 8 mg/dl (7-24); CHLORIDE 107 mmol/L (98-107); CREATININE 0.65 mg/dL (0.70-1.30); PHOSPHOROUS 1.7 mg/dL (2.5-4.9); POTASSIUM 3.3 mmol/L (3.5-5.1); SGOT/AST 6 IU/L (3-35); SGPT/ALT 14 U/L (12-78); SODIUM 137 mmol/L (136-145)
[2019-09-30 06:28] LABS: BASO % 0.6 % (0.0-1.0); EOS # 0.1 10*3/uL (0.0-0.4); EOS % 2.3 % (1.0-4.0); HEMATOCRIT 40.7 % (42.0-52.0); HEMOGLOBIN 14.8 g/dl (14.0-18.0); LYMPH # 1.3 10*3/uL (1.3-4.4); LYMPH % 27.8 % (27.0-41.0); MEAN CORPUSCULAR HGB 31.1 pg (27.0-31.0); MEAN CORPUSCULAR HGB CONC 36.4 g/dl (33.0-37.0); MEAN PLATELET VOLUME 11.1 fl (9.6-12.3); MONO # 0.6 10*3/uL (0.1-1.0); MONO % 11.4 % (3.0-9.0); NEUT # 2.8 10*3/uL (2.3-7.9); NEUT % 57.5 % (47.0-73.0); PLATELET COUNT AUTOMATED 193 10*3/uL (130-400); RED BLOOD COUNT 4.76 10*6/uL (4.50-5.90); RED CELL DISTRI WIDTH 13.2 % (0-14.5); WHITE BLOOD COUNT 4.8 10*3/uL (4.8-10.8)
[2019-09-30 06:29] LABS: MEAN CELL VOLUME 85.5 fl (80.0-94.0)
[2019-09-30 08:12] VITALS: BP 113/51
[2019-09-30 11:29] VITALS: BP 98/32
== END 2019-09-30 13:50 | disposition home or self-care (01) | DRG 420 ==
LOC: ED 21:27 → 4NE 09-29 00:09 → EDHOLD 09-29 00:09 → ICCU 09-29 00:32 → 4NE 09-29 19:46
PROVIDERS: Internal Medicine; Physician Assistant; Student in an Organized Health Care Education/Training Program; ADMIT Internal Medicine
DX: E10.10 Type 1 diabetes mellitus with ketoacidosis without coma (principal); E87.1 Hypo-osmolality and hyponatremia; R09.1 Pleurisy; R07.89 Other chest pain; R00.0 Tachycardia, unspecified; E88.09 Other disorders of plasma-protein metabolism, not elsewhere classified; K21.9 Gastro-esophageal reflux disease without esophagitis; R80.9 Proteinuria, unspecified; R06.00 Dyspnea, unspecified; E87.8 Other disorders of electrolyte and fluid balance, not elsewhere classified; R55 Syncope and collapse; Z91.19 Patient's noncompliance with other medical treatment and regimen; Z83.3 Family history of diabetes mellitus; Z82.3 Family history of stroke; Z82.49 Family history of ischemic heart disease and other diseases of the circulatory system; Z79.899 Other long term (current) drug therapy

== ENCOUNTER 2019-11-10 00:33 | Inpatient (IN) | payer OTHER ==
[2019-11-10] VITALS (9 sets, daily range): BP systolic 101–124; BP diastolic 53–82
[~2019-11-10] VITALS: Ht 182.8 cm; Wt 71.4 kg
[~2019-11-10 00:33] MED LIST changes: +TOUJEO SOL300 UNIT/1 SC; +TRULICITY1.5 MG/0.5 SC
[2019-11-10 00:58] LABS: BASO # 0.1 10*3/uL (0.0-0.1); BASO % 1.7 % (0.0-1.0); EOS # 0.2 10*3/uL (0.0-0.4); EOS % 3.1 % (1.0-4.0); HEMATOCRIT 47.9 % (42.0-52.0); LYMPH # 1.4 10*3/uL (1.3-4.4); LYMPH % 25.8 % (27.0-41.0); MEAN CELL VOLUME 89.5 fl (80.0-94.0); MEAN CORPUSCULAR HGB 31.4 pg (27.0-31.0); MEAN CORPUSCULAR HGB CONC 35.1 g/dl (33.0-37.0); MEAN PLATELET VOLUME 10.5 fl (9.6-12.3); MONO # 0.4 10*3/uL (0.1-1.0); MONO % 7.2 % (3.0-9.0); NEUT # 3.4 10*3/uL (2.3-7.9); NEUT % 61.8 % (47.0-73.0); PLATELET COUNT AUTOMATED 244 10*3/uL (130-400); RED BLOOD COUNT 5.35 10*6/uL (4.50-5.90); RED CELL DISTRI WIDTH 12.3 % (0-14.5); WHITE BLOOD COUNT 5.4 10*3/uL (4.8-10.8)
[2019-11-10 01:00] LABS: BILIRUBIN NEGATIVE (NEGATIVE); BLOOD NEGATIVE (NEGATIVE); CLARITY CLEAR (CLEAR); COLOR YELLOW (YELLOW); GLUCOSE 3+ (NEGATIVE); KETONE 3+ (NEGATIVE); LEUKO ESTERASE NEGATIVE (NEGATIVE); NITRITE NEGATIVE (NEGATIVE); UROBILINOGEN 0.2 E.U./dl (0.2-1.0)
[2019-11-10 01:07] LABS: BACTERIA TRACE
[2019-11-10 01:13] LABS: ALBUMIN 3.9 gm/dl (3.1-4.5); ALKALINE PHOSPHATASE 130 U/L (45-117); BUN 15 mg/dl (7-24); CHLORIDE 98 mmol/L (98-107); CREATININE 1.07 mg/dL (0.70-1.30); POTASSIUM 3.7 mmol/L (3.5-5.1); SGOT/AST 4 IU/L (3-35); SGPT/ALT 22 U/L (12-78); SODIUM 136 mmol/L (136-145); TOTAL PROTEIN 7.7 gm/dL (6.4-8.2)
--- NOTE | 2019-11-10 01:29 | NUR ---
PER DR PEREZ START INSULIN DRIP AT 8UNITS/HOUR.
--- NOTE | 2019-11-10 02:00 | NUR ---
PATIENT ARRIVED FROM ER WITH INSULIN DRIP STARTED AT 8 UNITS. PATIENT BG 280 FROM PREVIOUS 542. INSULIN REDUCED TO 6 UNITS/HR. DR. LEWIS AWARE.
--- NOTE | 2019-11-10 02:23 | NUR ---
A 18, admitted to ICCU, under the services of SHANE Baez MD with a diagnosis of DKA. Chief complaint is HYPERGLYCEMIA. Patient arrived via bed from ER. Monitor applied. Initial assessment completed. Vital signs taken and recorded. SHANE BAEZ MD notified of admission to the unit. Orders received. See assessment for past medical history, medications and allergies. Patient and/or family oriented to unit. [facility] ICCU visitation policy reviewed. Clothing/patient valuable form completed. DR. LEWIS NOTIFIED THAT PATIENT HAS ARRIVED. ORDERS RECEIVED. TAMELA BUSTILLOS
--- NOTE | 2019-11-10 03:00 | NUR ---
INSULIN DRIP REDUCED TO 4 UNITS/HR. PATIENT TOLERATING WELL.
--- NOTE | 2019-11-10 03:32 | NUR ---
DR. LEWIS AWARE THAT BG IS 280 WITH INSULIN DRIP JUST INITIATED DOWN IN ER PRIOR TO ARRIVAL. INSULIN DRIP REDUCED TO 6 UNITS/HR.
[2019-11-10 05:35] LABS: BUN 13 mg/dl (7-24); CHLORIDE 109 mmol/L (98-107); CREATININE 0.77 mg/dL (0.70-1.30); POTASSIUM 3.2 mmol/L (3.5-5.1); SODIUM 139 mmol/L (136-145)
[2019-11-10 05:57] LABS: BASO # 0.1 10*3/uL (0.0-0.1); EOS # 0.2 10*3/uL (0.0-0.4); EOS % 2.5 % (1.0-4.0); HEMATOCRIT 44.3 % (42.0-52.0); LYMPH # 1.7 10*3/uL (1.3-4.4); LYMPH % 23.8 % (27.0-41.0); MEAN CELL VOLUME 87.7 fl (80.0-94.0); MEAN CORPUSCULAR HGB 31.3 pg (27.0-31.0); MEAN CORPUSCULAR HGB CONC 35.7 g/dl (33.0-37.0); MEAN PLATELET VOLUME 10.9 fl (9.6-12.3); MONO # 0.8 10*3/uL (0.1-1.0); MONO % 11.5 % (3.0-9.0); NEUT # 4.3 10*3/uL (2.3-7.9); NEUT % 60.5 % (47.0-73.0); PLATELET COUNT AUTOMATED 245 10*3/uL (130-400); RED BLOOD COUNT 5.05 10*6/uL (4.50-5.90); RED CELL DISTRI WIDTH 12.3 % (0-14.5); WHITE BLOOD COUNT 7.1 10*3/uL (4.8-10.8)
--- NOTE | 2019-11-10 06:10 | NUR ---
INSULIN GTT STOPPED AT THIS TIME. FLUIDS STOPPED ONCE K-RUN WAS COMPLETED.
--- NOTE | 2019-11-10 08:00 | NUR ---
PATIENT AWAKE ALERT AND ORIENTED. JUST FINISHED EATING BREAKFAST. ATE APPROXIMATELY 25%. C/O NAUSEA AT THIS TIME. MEDICATED WITH ZOFRAN PER PRN ORDER. WILL CONTINUE TO MONITOR.
--- NOTE | 2019-11-10 08:30 | NUR ---
Vice Chancellor in to talk to patient. Patient states lives at home with his parents. There are "some" steps in the home. Physician: Dr. Georgi Galarza Pharmacy: [facility] Home health services: none Patient's level of ADLs: INDEPENDENT Patient has working utilities: yes DME: none Follow-up physician's appointment after d/c: he prefers to make his own follow up appt after discharge Does patient want to access PORTAL?: no Discharge plan discussed with patient. He lives at home with his parents. He is independent in his ADLs and ambulation. Discussed home health care services and he denies any home needs. When medically stable he will be discharged to home. He states one of his parents will provide transportation on discharge. JIMY RDZ
[2019-11-10 10:31] LABS: BUN 11 mg/dl (7-24); CHLORIDE 104 mmol/L (98-107); CREATININE 0.81 mg/dL (0.70-1.30); POTASSIUM 3.7 mmol/L (3.5-5.1); SODIUM 138 mmol/L (136-145)
--- NOTE | 2019-11-10 13:21 | NUR ---
PATIENT REFUSED TO EAT LUNCH. C/O NAUSEA AGAIN AT THIS TIME. MEDICATED WITH ZOFRAN PER PRN ORDER.
[2019-11-10 14:30] LABS: BUN 10 mg/dl (7-24); CHLORIDE 107 mmol/L (98-107); CREATININE 0.61 mg/dL (0.70-1.30); POTASSIUM 3.6 mmol/L (3.5-5.1); SODIUM 139 mmol/L (136-145)
[2019-11-10 18:47] LABS: BUN 7 mg/dl (7-24); CHLORIDE 106 mmol/L (98-107); SODIUM 137 mmol/L (136-145)
--- NOTE | 2019-11-10 20:23 | NUR ---
Patient resting, easily awakes. Denies any nausea after eating all of his dinner, denies any pain. No diarrhea since this afternoon. Patient denies any needs at this time. Left with call light and in view of staff.
--- NOTE | 2019-11-10 21:45 | NUR ---
24 HR chart check completed.
[2019-11-10 22:19] LABS: BUN 7 mg/dl (7-24); CHLORIDE 108 mmol/L (98-107); CREATININE 0.74 mg/dL (0.70-1.30); POTASSIUM 3.7 mmol/L (3.5-5.1); SODIUM 138 mmol/L (136-145)
--- NOTE | 2019-11-10 23:58 | NUR ---
Patient eating well, requested a sandwich and had no nausea/vomiting. Patient denies any needs at this time. IVF running, vital signs stable. Patient left with call light and in view of staff.
[2019-11-11] VITALS: BP 111/60
[2019-11-11 02:28] LABS: BUN 6 mg/dl (7-24); CHLORIDE 108 mmol/L (98-107); CREATININE 0.68 mg/dL (0.70-1.30); POTASSIUM 3.4 mmol/L (3.5-5.1); SODIUM 136 mmol/L (136-145)
[2019-11-11 04:00] VITALS: BP 108/59
[2019-11-11 06:46] LABS: BUN 6 mg/dl (7-24); CHLORIDE 108 mmol/L (98-107); POTASSIUM 3.1 mmol/L (3.5-5.1); SODIUM 141 mmol/L (136-145)
[2019-11-11 06:47] LABS: CREATININE 0.51 mg/dL (0.70-1.30)
[2019-11-11 08:00] VITALS: BP 106/58
--- NOTE | 2019-11-11 08:00 | NUR ---
ALERT AND ORIENTED PLEASANT AND COOPERATIVE LUNGS CLEAR, DENIES GI UPSET IV FLUIDS AT 125 CONTINUE
--- NOTE | 2019-11-11 10:00 | NUR ---
DIABETIC TEACHING PT STATES HIS "POD" WAS STOLEN-MONTHS AGO AND HE HAD NOT HAD IT REPLACED PT DENIES NEED FOR TEACJING "I KNOW WHAT IM DOING"
[2019-11-11 12:00] VITALS: BP 102/64
--- NOTE | 2019-11-11 12:32 | NUR ---
Nutritional Support Services Note: Appeitte is good for meals. He is eating 100% of meals. 1800cal diabetic diet as ordered. He has been instructed on his diet in the past. Is noncompliant and wants to eat what he wants. Stressed importance of three meals daily and a night snack. Encouraged healthy eating. Will continue to follow if needed. Declined diet copy. Shruthi Urban Rdn Ld
--- NOTE | 2019-11-11 12:35 | NUR ---
IV FLUIDS DC'D PT EATING AND DRINKING WELL
--- NOTE | 2019-11-11 13:00 | NUR ---
DR DIAZ HERE, PT ADVISED TO KEEP A RECORD OF HIS BLOOD SUAGRS AND TO CALL DR DIAZ ON THURSDAY PT AGREEABLE
--- NOTE | 2019-11-11 13:31 | NUR ---
IV SITES REMOVED PT VERBALIZES UNDERSTANDING OF HOME CARE/INSULIN DC TO HOME
== END 2019-11-11 13:32 | disposition home or self-care (01) | DRG 420 ==
LOC: ED 00:33 → EDHOLD 01:26 → ICCU 01:26
PROVIDERS: Emergency Medicine; Internal Medicine; Student in an Organized Health Care Education/Training Program; ADMIT Internal Medicine
DX: E10.10 Type 1 diabetes mellitus with ketoacidosis without coma (principal); K21.9 Gastro-esophageal reflux disease without esophagitis; R74.8 Abnormal levels of other serum enzymes; R00.0 Tachycardia, unspecified; Z83.3 Family history of diabetes mellitus; Z79.4 Long term (current) use of insulin; Z79.899 Other long term (current) drug therapy; E10.65 Type 1 diabetes mellitus with hyperglycemia

== ENCOUNTER 2019-11-23 08:51 | Emergency (ER) | payer OTHER ==
[~2019-11-23] VITALS: Ht 182.8 cm; Wt 76.2 kg
[2019-11-23 08:57] VITALS: BP 131/73
[2019-11-23] MEDS ORDERED: NORCO 5-325 TA1 EACH PO (09:09)
[2019-11-23] MEDS ORDERED: CEPHALEXIN500 M1 PO (09:09)
[2019-11-23] MEDS ORDERED: SEPTDS PO (09:09)
== END 2019-11-23 09:42 | disposition home or self-care (01) ==
LOC: ED 08:51
DX: L02.31 Cutaneous abscess of buttock (principal); K21.9 Gastro-esophageal reflux disease without esophagitis; E11.9 Type 2 diabetes mellitus without complications; Z79.899 Other long term (current) drug therapy; Z79.4 Long term (current) use of insulin

== ENCOUNTER 2020-04-10 03:35 | Emergency (ER) | payer OTHER ==
[~2020-04-10] VITALS: Ht 182.8 cm; Wt 74.8 kg
[~2020-04-10 03:35] MED LIST changes: +CEPHALEXIN500 M1 PO; +CLEOCIN HCL300 MG PO; +NORCO 5-325 TA1 EACH PO; +PREDNISONE50 MG PO; +SEPTDS PO
[2020-04-10 05:45] LABS: BASO # 0.1 10*3/uL (0.0-0.1); BASO % 0.7 % (0.0-1.0); EOS % 0.6 % (1.0-4.0); HEMATOCRIT 41.5 % (42.0-52.0); LYMPH # 1.9 10*3/uL (1.3-4.4); LYMPH % 26.9 % (27.0-41.0); MEAN CELL VOLUME 85.2 fl (80.0-94.0); MEAN CORPUSCULAR HGB 30.2 pg (27.0-31.0); MEAN CORPUSCULAR HGB CONC 35.4 g/dl (33.0-37.0); MEAN PLATELET VOLUME 10.3 fl (9.6-12.3); MONO # 0.9 10*3/uL (0.1-1.0); MONO % 11.9 % (3.0-9.0); NEUT # 4.3 10*3/uL (2.3-7.9); NEUT % 59.2 % (47.0-73.0); PLATELET COUNT AUTOMATED 289 10*3/uL (130-400); RED BLOOD COUNT 4.87 10*6/uL (4.50-5.90); RED CELL DISTRI WIDTH 12.4 % (0-14.5); WHITE BLOOD COUNT 7.2 10*3/uL (4.8-10.8)
[2020-04-10 05:54] LABS: ALKALINE PHOSPHATASE 145 U/L (45-117); BUN 9 mg/dl (7-24); CHLORIDE 99 mmol/L (98-107); CREATININE 0.94 mg/dL (0.70-1.30); POTASSIUM 3.9 mmol/L (3.5-5.1); SGOT/AST 14 IU/L (3-35); SGPT/ALT 15 U/L (12-78); SODIUM 132 mmol/L (136-145); TOTAL PROTEIN 6.9 gm/dL (6.4-8.2)
[2020-04-10 07:38] VITALS: BP 108/58
[2020-04-10 07:58] LABS: BUN 7 mg/dl (7-24); CHLORIDE 107 mmol/L (98-107); CREATININE 0.71 mg/dL (0.70-1.30); POTASSIUM 3.2 mmol/L (3.5-5.1); SODIUM 139 mmol/L (136-145)
[2020-04-10] MEDS ORDERED: AUGMENTIN 875875 MG PO (09:58)
== END 2020-04-10 10:13 | disposition left against medical advice (07) ==
LOC: ED 03:35
PROVIDERS: Emergency Medicine
DX: J36 Peritonsillar abscess (principal); E11.10 Type 2 diabetes mellitus with ketoacidosis without coma; K21.9 Gastro-esophageal reflux disease without esophagitis; E11.9 Type 2 diabetes mellitus without complications; Z79.899 Other long term (current) drug therapy

== ENCOUNTER 2020-05-05 21:14 | Inpatient (IN) | payer OTHER ==
[~2020-05-05] VITALS: Ht 182.9 cm; Wt 66.0 kg
[~2020-05-05 21:14] MED LIST changes: +AUGMENTIN 875875 MG PO
[2020-05-05 21:20] VITALS: BP 106/76
[2020-05-05 21:42] LABS: BASO # 0.1 10*3/uL (0.0-0.1); BASO % 0.9 % (0.0-1.0); EOS # 0.1 10*3/uL (0.0-0.4); EOS % 1.9 % (1.0-4.0); HEMATOCRIT 44.9 % (42.0-52.0); LYMPH # 1.5 10*3/uL (1.3-4.4); LYMPH % 25.3 % (27.0-41.0); MEAN CELL VOLUME 86.7 fl (80.0-94.0); MEAN CORPUSCULAR HGB 30.9 pg (27.0-31.0); MEAN CORPUSCULAR HGB CONC 35.6 g/dl (33.0-37.0); MEAN PLATELET VOLUME 10.2 fl (9.6-12.3); MONO # 0.6 10*3/uL (0.1-1.0); MONO % 10.1 % (3.0-9.0); NEUT # 3.6 10*3/uL (2.3-7.9); NEUT % 61.1 % (47.0-73.0); PLATELET COUNT AUTOMATED 292 10*3/uL (130-400); RED BLOOD COUNT 5.18 10*6/uL (4.50-5.90); RED CELL DISTRI WIDTH 12.4 % (0-14.5); WHITE BLOOD COUNT 5.9 10*3/uL (4.8-10.8)
[2020-05-05 21:58] LABS: ALBUMIN 3.8 gm/dl (3.1-4.5); ALKALINE PHOSPHATASE 95 U/L (45-117); BUN 9 mg/dl (7-24); CHLORIDE 106 mmol/L (98-107); CREATININE 0.83 mg/dL (0.70-1.30); LIPASE 67 U/L (73-393); POTASSIUM 3.6 mmol/L (3.5-5.1); SGOT/AST 11 IU/L (3-35); SGPT/ALT 15 U/L (12-78); SODIUM 135 mmol/L (136-145); TOTAL PROTEIN 7.3 gm/dL (6.4-8.2)
[2020-05-05 22:01] VITALS: BP 120/75
[2020-05-05 22:10] LABS: ARTERIAL BLOOD GAS PH 7.276 (7.35-7.45)
[2020-05-05 22:12] LABS: ABG BASE EXCESS -13.6 mmol/L (-2.0-2.0)
--- NOTE | 2020-05-05 22:17 | NUR ---
PT GIVES VERBAL CONSENT FOR SHANE JOHNSON TO BE UPDATED OVER THE PHONE. UPDATE GIVEN TO ALEX.
--- NOTE | 2020-05-05 22:49 | NUR ---
LG EMESIS X1, CLEAR YELLOW LIQUID. CHANGED PTS SHEETS AND GOWN. IVF INFUSING PER ORDERS. PLEASANT AND COOPERATIVE. RESP EASY AND NONLABORED ON ROOM AIR. TELE MONITOR INTACT.
[2020-05-05 22:51] VITALS: BP 128/79
--- NOTE | 2020-05-05 23:28 | NUR ---
THE PATIENT HAS NOT BEEN ABLE TO PROVIDE A URINE SAMPLE
--- NOTE | 2020-05-05 23:38 | NUR ---
THIS NURSE RECIEVED A VERBAL ORDER FROM DR DIAZ FOR ZOFRAN 4MG Q6H FOR NAUSEA AND VOMITING.
[2020-05-06 00:18] LABS: BILIRUBIN Negative (Negative); BLOOD Negative (Negative); CLARITY Clear (Clear); COLOR Yellow (Yellow); GLUCOSE 3+ (Negative); KETONE 4+ (Negative); LEUKO ESTERASE Negative (Negative); NITRITE Negative (Negative); PH 5.5 (4.5-8.0); SPECIFIC GRAVITY >= 1.030 (1.001-1.030)
--- NOTE | 2020-05-06 00:18 | NUR ---
THE PATIENT GAVE VERBAl CONSENT TO SPEAK WITH HIS MOTHER. I DID SPEAK WITH HER ABOUT THE PATIENT
[2020-05-06 00:31] LABS: BACTERIA TRACE; EPITHELIAL CELLS 0-2; RBC 0-2 rbc/hpf (0-2)
--- NOTE | 2020-05-06 00:57 | NUR ---
THE PATIENT IS RESTING ON THE BED WITH HIS EYES CLOSED. CALL LIGHT IS ATTACHED TO THE BED.
[2020-05-06 02:30] VITALS: BP 126/76
--- NOTE | 2020-05-06 02:39 | NUR ---
THE BSG IS 191 THE INSULING DRIP WAS DECREASED TO 1UNIT/ML
--- NOTE | 2020-05-06 04:15 | NUR ---
PT INSULIN DRIP TITRATED TO 3 UNITS/HR.
--- NOTE | 2020-05-06 05:12 | NUR ---
PT REMAINS RESTING IN ROOM. PROVIDED WITH PITCHER OF WATER. NO VOICED COMPLAINTS. CALL LIGHT WITHIN REACH. WILL CONTINUE TO MONITOR.
[2020-05-06 06:15] LABS: BASO % 0.3 % (0.0-1.0); EOS # 0.1 10*3/uL (0.0-0.4); EOS % 0.9 % (1.0-4.0); HEMATOCRIT 42.6 % (42.0-52.0); LYMPH # 0.9 10*3/uL (1.3-4.4); LYMPH % 10.5 % (27.0-41.0); MEAN CELL VOLUME 87.8 fl (80.0-94.0); MEAN CORPUSCULAR HGB 30.7 pg (27.0-31.0); MEAN PLATELET VOLUME 10.6 fl (9.6-12.3); MONO # 0.9 10*3/uL (0.1-1.0); MONO % 10.5 % (3.0-9.0); NEUT # 6.8 10*3/uL (2.3-7.9); NEUT % 77.3 % (47.0-73.0); PLATELET COUNT AUTOMATED 258 10*3/uL (130-400); RED BLOOD COUNT 4.85 10*6/uL (4.50-5.90); RED CELL DISTRI WIDTH 12.7 % (0-14.5); WHITE BLOOD COUNT 8.7 10*3/uL (4.8-10.8)
[2020-05-06 06:30] LABS: CHLORIDE 112 mmol/L (98-107); SODIUM 141 mmol/L (136-145)
[2020-05-06 06:33] LABS: BUN 7 mg/dl (7-24); CREATININE 0.59 mg/dL (0.70-1.30)
--- NOTE | 2020-05-06 06:51 | NUR ---
PT REMAINS RESTING IN BED. NO VOICED COMPLAINTS. WILL CONTINUE TO MONITOR.
[2020-05-06 06:53] VITALS: BP 126/74
[2020-05-06 08:12] VITALS: BP 113/68
--- NOTE | 2020-05-06 08:12 | NUR ---
A 19, admitted to ICCU, under the services of SHANE Baez MD with a diagnosis of DKA. Chief complaint is NAUSEA , VOMITING AND FEELING THAT SUGAR IS UP. Patient arrived via stretcher from ER. Monitor applied. Initial assessment completed. Vital signs taken and recorded. SHANE BAEZ MD notified of admission to the unit. Orders received. See assessment for past medical history, medications and allergies. Patient and/or family oriented to unit. [facility] ICCU visitation policy reviewed. Clothing/patient valuable form completed. ELI THOMAS
--- NOTE | 2020-05-06 09:30 | NUR ---
Dr. Galarza was called for adm orders. Message left for call back.
[2020-05-06 12:00] VITALS: BP 100/55
--- NOTE | 2020-05-06 12:33 | NUR ---
1000 CALLED TO dR. Sahu HOME #, ORDERS RECIEVED. dR. Sahu STATED THAT will round for him today.
[2020-05-06 14:25] LABS: BUN 6 mg/dl (7-24); CHLORIDE 109 mmol/L (98-107); CREATININE 0.58 mg/dL (0.70-1.30); POTASSIUM 3.1 mmol/L (3.5-5.1); SODIUM 140 mmol/L (136-145)
[2020-05-06 16:00] VITALS: BP 93/52
--- NOTE | 2020-05-06 16:09 | NUR ---
Dr. Arguello in. Ordered supper, no c/o N/V.
[2020-05-06 18:30] LABS: BUN 6 mg/dl (7-24); CHLORIDE 108 mmol/L (98-107); CREATININE 0.71 mg/dL (0.70-1.30); POTASSIUM 3.6 mmol/L (3.5-5.1); SODIUM 136 mmol/L (136-145)
[2020-05-06 20:00] VITALS: BP 100/54
--- NOTE | 2020-05-06 20:39 | NUR ---
DR LYLE (WHO IS COVERING FOR DR DIAZ) NOTIFIED OF LATEST BMP DRAWN AT 1800. REVIEWED ORDERS AND GLUCOMETERS WITH HIM. ORDERS RECEIVED.
--- NOTE | 2020-05-06 20:46 | NUR ---
ON ASSESSMENT PATIENT ALERT, ORIENTED, WATCHING A MOVIE ON HIS LAPTOP. INULIN DRIP WAS INFUSING AT 7 UNITS/HR AND D5.45NS AT 150/HR. HE DENIED ANY PAIN, NAUSEA OR VOMITING, SAYS HE FEELS "A LOT BETTER". 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 HE HAD TONSILITIS IN THE PAST FEW WEEKS, WAS ON ANTIBIOTICS AND PREDNISONE. HE RAN OUT OF HIS LONG ACTING INSULIN, LAST HAVING IT MAYBE THURSDAY. HE HAS HIS BLUE JEANS ON STILL AND CLAIMS TO BE COMFORTABLE. SEE ALL APPROPRIATE INTERVENTIONS.
--- NOTE | 2020-05-06 21:09 | NUR ---
IV FLUIDS CHANGED TO 0.9%NS AT 100/HR. INSULIN DRIP D/C PER ORDER. LANTUS INSULIN 40UNITS S/C GIVEN PER ORDER.
--- NOTE | 2020-05-06 21:16 | NUR ---
Shift chart check completed.24 HR chart check completed.
--- NOTE | 2020-05-06 21:30 | NUR ---
DR DIAZ CALLED IN TO CHECK ON PATIENT. UPDATED ON CURRENT FLUIDS/ORDERS. NO NEW ORDERS.
[2020-05-07] VITALS: BP 95/55
--- NOTE | 2020-05-07 02:15 | NUR ---
AWAKE ON HIS PHONE AND LAPTOP. NO SIGNS OF HYPOGLYCEMIA.
--- NOTE | 2020-05-07 03:51 | NUR ---
PT AWAKE, SAID "I CAN'T WAIT TILL BREAKFAST TIME, I'M HUNGRY". PROVIDED HIM WITH SALTINES/PEANUT BUTTER. HIS GLUCOMETER IS 158 WITH APPROPRIATE COVERAGE ADMINISTERED. REINFORCEMENT THAT HE NEEDS TO BE IN CONTROL OF HIS DIABETES.
[2020-05-07 03:53] VITALS: BP 102/62
[2020-05-07 06:46] LABS: BUN 5 mg/dl (7-24); CHLORIDE 108 mmol/L (98-107); CREATININE 0.52 mg/dL (0.70-1.30); POTASSIUM 3.3 mmol/L (3.5-5.1); SODIUM 137 mmol/L (136-145)
[2020-05-07 08:00] VITALS: BP 106/54
--- NOTE | 2020-05-07 08:00 | NUR ---
ALERT AND ORIENTED, COOPERATIVE NO VOICED C/O IV FLUIDS CONTINUE
--- NOTE | 2020-05-07 09:30 | NUR ---
Tube Depatcher in to talk to patient. Patient states lives at home with his parents. There are "some" steps in the home. Physician: Dr. Georgi Galarza [facility]: [facility] Home health services: none Patient's level of ADLs: INDEPENDENT Patient has working utilities: yes DME: none Follow-up physician's appointment after d/c: he prefers to make his own follow up appt after discharge Does patient want to access PORTAL?: no Discharge plan discussed with patient. He lives at home with his parents. He is independent in his ADLs and ambulation. Discussed home health care services and he declines. CM will continue to follow for any discharge planning needs. When medically stable he will be discharged to home. He states one of his parents will provide transportation on discharge. JIMY RDZ
--- NOTE | 2020-05-07 11:45 | NUR ---
GOOD APPETITE FOR JORGE ALBERTO AWAITING DR DIAZ
[2020-05-07 12:00] VITALS: BP 106/64
--- NOTE | 2020-05-07 13:30 | NUR ---
MED STUDENT IN TO SEE PT GAVE INSTRUCTION ON IDDM CONTROL
--- NOTE | 2020-05-07 15:04 | NUR ---
DR MCGOWAN IN TO SEE PT FOR DR DIAZ
--- NOTE | 2020-05-07 15:33 | NUR ---
DC TO HOME PT VERBALIZED GOOD UNDERSTANDING OF HOME CARE AND DIABETIC CARE-PT UNINTERESTED IN FURTHER TEACHING SISTER WHO WORKS FOR DR DIAZ IS "TAKING CARE" OF HIS NEW SCRIPTS
== END 2020-05-07 17:45 | disposition home or self-care (01) | DRG 420 ==
LOC: ED 21:14 → EDHOLD 22:26 → ICCU 22:26
PROVIDERS: Emergency Medicine; ADMIT Internal Medicine; ATTEND Internal Medicine
DX: E10.10 Type 1 diabetes mellitus with ketoacidosis without coma (principal); E87.6 Hypokalemia; E87.1 Hypo-osmolality and hyponatremia; K21.9 Gastro-esophageal reflux disease without esophagitis; E83.51 Hypocalcemia; Z90.49 Acquired absence of other specified parts of digestive tract; Z83.3 Family history of diabetes mellitus

== ENCOUNTER → 2020-07-20 | Outpatient (CLI) | payer OTHER ==
[~2020-07-20] MED LIST changes: +DOXYCYCLINE100 MG PO
== END | disposition home or self-care (01) ==
LOC: COVID19 14:09
PROVIDERS: ATTEND Internal Medicine Nephrology
DX: Z20.822 Contact with and (suspected) exposure to COVID-19 (principal)

== ENCOUNTER 2020-07-23 15:45 | Emergency (ER) | payer OTHER ==
[~2020-07-23] VITALS: Wt 77.1 kg
[~2020-07-23 15:45] MED LIST changes: -DOXYCYCLINE100 MG PO
[2020-07-23 16:12] VITALS: BP 107/72
== END 2020-07-23 19:05 | disposition left against medical advice (07) ==
LOC: ED 15:45
DX: L02.612 Cutaneous abscess of left foot (principal); Z53.21 Procedure and treatment not carried out due to patient leaving prior to being seen by health care provider

== ENCOUNTER 2020-07-29 05:50 | Inpatient (IN) | payer OTHER ==
[~2020-07-29] VITALS: Ht 182.8 cm; Wt 72.6 kg
[2020-07-29] VITALS (7 sets, daily range): BP systolic 108–138; BP diastolic 62–86
[2020-07-29 06:40] LABS: BASO # 0.1 10*3/uL (0.0-0.1); BASO % 0.6 % (0.0-1.0); EOS # 0.2 10*3/uL (0.0-0.4); EOS % 1.6 % (1.0-4.0); HEMATOCRIT 47.2 % (42.0-52.0); LYMPH # 2.4 10*3/uL (1.3-4.4); LYMPH % 25.9 % (27.0-41.0); MEAN CELL VOLUME 85.5 fl (80.0-94.0); MEAN CORPUSCULAR HGB 30.3 pg (27.0-31.0); MEAN CORPUSCULAR HGB CONC 35.4 g/dl (33.0-37.0); MEAN PLATELET VOLUME 10.4 fl (9.6-12.3); MONO # 0.9 10*3/uL (0.1-1.0); MONO % 9.7 % (3.0-9.0); NEUT # 5.7 10*3/uL (2.3-7.9); NEUT % 60.8 % (47.0-73.0); PLATELET COUNT AUTOMATED 411 10*3/uL (130-400); RED BLOOD COUNT 5.52 10*6/uL (4.50-5.90); RED CELL DISTRI WIDTH 11.8 % (0-14.5); WHITE BLOOD COUNT 9.3 10*3/uL (4.8-10.8)
[2020-07-29 06:51] LABS: ALBUMIN 3.7 gm/dl (3.1-4.5); ALKALINE PHOSPHATASE 89 U/L (45-117); BUN 13 mg/dl (7-24); CHLORIDE 97 mmol/L (98-107); CREATININE 1.19 mg/dL (0.70-1.30); POTASSIUM 4.1 mmol/L (3.5-5.1); SGOT/AST 5 IU/L (3-35); SGPT/ALT 14 U/L (12-78); SODIUM 126 mmol/L (136-145); TOTAL PROTEIN 8.2 gm/dL (6.4-8.2)
[2020-07-29 07:44] LABS: BILIRUBIN Negative (Negative); BLOOD Negative (Negative); CLARITY Clear (Clear); COLOR Yellow (Yellow); GLUCOSE 3+ (Negative); KETONE 4+ (Negative); LEUKO ESTERASE Negative (Negative); NITRITE Negative (Negative); SPECIFIC GRAVITY >= 1.030 (1.001-1.030); UROBILINOGEN 0.2 E.U./dl (0.0-1.0)
[2020-07-29 07:56] LABS: BACTERIA TRACE; WBC 0-2 wbc/hpf (0-5)
[2020-07-29 07:57] LABS: MUCOUS TRACE
[2020-07-29 14:44] LABS: BUN 14 mg/dl (7-24); CHLORIDE 108 mmol/L (98-107); CREATININE 0.92 mg/dL (0.70-1.30); POTASSIUM 3.9 mmol/L (3.5-5.1); SODIUM 133 mmol/L (136-145)
[2020-07-29 18:25] LABS: ALBUMIN 3.2 gm/dl (3.1-4.5); ALKALINE PHOSPHATASE 85 U/L (45-117); BUN 13 mg/dl (7-24); CHLORIDE 105 mmol/L (98-107); CREATININE 1.01 mg/dL (0.70-1.30); POTASSIUM 4.5 mmol/L (3.5-5.1); SGOT/AST 9 IU/L (3-35); SGPT/ALT 13 U/L (12-78); SODIUM 133 mmol/L (136-145)
[2020-07-30 03:30] VITALS: BP 119/74
[2020-07-30 06:56] VITALS: BP 110/67
[2020-07-30 07:42] VITALS: BP 115/68
[2020-07-30 07:44] VITALS: BP 115/68
[2020-07-30 11:10] VITALS: BP 114/74
[2020-07-30 13:51] VITALS: BP 120/76
[2020-07-30] MEDS ORDERED: DOXYCYCLINE100 MG PO (16:34)
== END 2020-07-30 16:38 | disposition home or self-care (01) | DRG 420 ==
LOC: ED 05:50 → EDHOLD 07:05
PROVIDERS: Emergency Medicine; ADMIT Internal Medicine; ATTEND Internal Medicine
DX: E10.10 Type 1 diabetes mellitus with ketoacidosis without coma (principal); K61.1 Rectal abscess; K21.9 Gastro-esophageal reflux disease without esophagitis; Z83.3 Family history of diabetes mellitus; Z79.4 Long term (current) use of insulin

== ENCOUNTER → 2020-08-23 | Outpatient (CLI) | payer OTHER ==
[~2020-08-23] MED LIST changes: +DOXYCYCLINE100 MG PO
== END | disposition home or self-care (01) ==
LOC: RAD 14:38
PROVIDERS: ATTEND Internal Medicine
DX: J45.909 Unspecified asthma, uncomplicated (principal)

== ENCOUNTER 2020-10-12 13:52 | Emergency (ER) | payer OTHER ==
[~2020-10-12] VITALS: Ht 182.8 cm; Wt 72.6 kg
[2020-10-12 14:47] LABS: BASO # 0.1 10*3/uL (0.0-0.1); BASO % 1.5 % (0.0-1.0); EOS # 0.1 10*3/uL (0.0-0.4); EOS % 1.5 % (1.0-4.0); HEMATOCRIT 46.4 % (42.0-52.0); LYMPH # 1.7 10*3/uL (1.3-4.4); LYMPH % 42.2 % (27.0-41.0); MEAN CELL VOLUME 84.4 fl (80.0-94.0); MEAN CORPUSCULAR HGB 30.7 pg (27.0-31.0); MEAN CORPUSCULAR HGB CONC 36.4 g/dl (33.0-37.0); MEAN PLATELET VOLUME 10.4 fl (9.6-12.3); MONO # 0.4 10*3/uL (0.1-1.0); MONO % 9.6 % (3.0-9.0); NEUT # 1.8 10*3/uL (2.3-7.9); NEUT % 44.9 % (47.0-73.0); PLATELET COUNT AUTOMATED 249 10*3/uL (130-400); RED CELL DISTRI WIDTH 11.7 % (0-14.5)
[2020-10-12 14:59] LABS: BILIRUBIN Negative (Negative); BLOOD Negative (Negative); CLARITY Clear (Clear); COLOR Yellow (Yellow); GLUCOSE 3+ (Negative); KETONE 1+ (Negative); LEUKO ESTERASE Negative (Negative); NITRITE Negative (Negative); PH 5.5 (4.5-8.0); SPECIFIC GRAVITY >= 1.030 (1.001-1.030); UROBILINOGEN 0.2 E.U./dl (0.0-1.0)
[2020-10-12 15:06] LABS: ALBUMIN 3.5 gm/dl (3.1-4.5); ALKALINE PHOSPHATASE 89 U/L (45-117); BUN 15 mg/dl (7-24); CHLORIDE 103 mmol/L (98-107); CREATININE 0.62 mg/dL (0.70-1.30); LIPASE 170 U/L (73-393); POTASSIUM 3.9 mmol/L (3.5-5.1); SGOT/AST 6 IU/L (3-35); SGPT/ALT 17 U/L (12-78); SODIUM 136 mmol/L (136-145); TOTAL PROTEIN 7.1 gm/dL (6.4-8.2)
[2020-10-12 15:08] LABS: EPITHELIAL CELLS 0-2; MUCOUS TRACE; WBC 0-2 wbc/hpf (0-5)
[2020-10-12 15:09] LABS: NT-proBNP < 5.00 pg/mL (0-125); TROPONIN I < 0.015 ng/ml (<0.045)
[2020-10-12 15:12] VITALS: BP 116/77
== END 2020-10-12 19:05 | disposition home or self-care (01) ==
LOC: ED 13:52
PROVIDERS: Emergency Medicine
DX: E87.5 Hyperkalemia (principal); Z79.899 Other long term (current) drug therapy; Z79.4 Long term (current) use of insulin; Z98.890 Other specified postprocedural states

== ENCOUNTER 2020-11-14 07:42 | Emergency (ER) | payer OTHER ==
[~2020-11-14] VITALS: Ht 182.8 cm; Wt 68.0 kg
[2020-11-14 07:48] VITALS: BP 111/70
[2020-11-14 08:15] LABS: BASO # 0.1 10*3/uL (0.0-0.1); BASO % 0.8 % (0.0-1.0); EOS # 0.1 10*3/uL (0.0-0.4); EOS % 1.6 % (1.0-4.0); HEMATOCRIT 46.1 % (42.0-52.0); LYMPH # 1.5 10*3/uL (1.3-4.4); LYMPH % 23.6 % (27.0-41.0); MEAN CELL VOLUME 83.5 fl (80.0-94.0); MEAN CORPUSCULAR HGB 29.9 pg (27.0-31.0); MEAN CORPUSCULAR HGB CONC 35.8 g/dl (33.0-37.0); MEAN PLATELET VOLUME 10.9 fl (9.6-12.3); MONO # 0.8 10*3/uL (0.1-1.0); MONO % 12.9 % (3.0-9.0); NEUT # 3.9 10*3/uL (2.3-7.9); NEUT % 60.8 % (47.0-73.0); PLATELET COUNT AUTOMATED 225 10*3/uL (130-400); RED BLOOD COUNT 5.52 10*6/uL (4.50-5.90); WHITE BLOOD COUNT 6.5 10*3/uL (4.8-10.8)
[2020-11-14 08:26] LABS: ACT PARTIAL THROMBO TIME 27.9 SECONDS (20.0-32.1)
[2020-11-14 08:30] LABS: ALBUMIN 3.5 gm/dl (3.1-4.5); ALKALINE PHOSPHATASE 78 U/L (45-117); BUN 17 mg/dl (7-24); CHLORIDE 101 mmol/L (98-107); CREATININE 0.66 mg/dL (0.70-1.30); LIPASE 55 U/L (73-393); POTASSIUM 3.9 mmol/L (3.5-5.1); SGOT/AST 7 IU/L (3-35); SGPT/ALT 17 U/L (12-78); SODIUM 133 mmol/L (136-145); TOTAL PROTEIN 7.1 gm/dL (6.4-8.2)
[2020-11-14 08:34] LABS: TROPONIN I < 0.015 ng/ml (<0.045)
[2020-11-14 08:47] LABS: BILIRUBIN Negative (Negative); BLOOD Negative (Negative); CLARITY Clear (Clear); COLOR Yellow (Yellow); GLUCOSE 3+ (Negative); KETONE Trace (Negative); LEUKO ESTERASE Negative (Negative); NITRITE Negative (Negative); PH 5.5 (4.5-8.0); SPECIFIC GRAVITY >= 1.030 (1.001-1.030)
[2020-11-14 09:00] LABS: BACTERIA TRACE; EPITHELIAL CELLS 0-2; RBC 0-2 rbc/hpf (0-2); WBC 0-2 wbc/hpf (0-5)
[2020-11-14] MEDS ORDERED: ZOFRAN4 MG PO (11:27)
== END 2020-11-14 11:42 | disposition home or self-care (01) ==
LOC: ED 07:42
PROVIDERS: Emergency Medicine
DX: K52.9 Noninfective gastroenteritis and colitis, unspecified (principal); E11.65 Type 2 diabetes mellitus with hyperglycemia; Z79.899 Other long term (current) drug therapy; Z79.4 Long term (current) use of insulin

== ENCOUNTER → 2020-11-15 | Outpatient (CLI) | payer OTHER | END | disposition home or self-care (01) | LOC: COVID19 11:42 | PROVIDERS: ATTEND Internal Medicine | DX: J02.9 Acute pharyngitis, unspecified (principal); Z20.822 Contact with and (suspected) exposure to COVID-19 ==

== ENCOUNTER 2020-11-19 15:39 | Emergency (ER) | payer OTHER ==
[~2020-11-19] VITALS: Ht 182.8 cm; Wt 70.3 kg
[2020-11-19 16:10] LABS: BASO % 0.6 % (0.0-1.0); EOS # 0.1 10*3/uL (0.0-0.4); EOS % 1.9 % (1.0-4.0); HEMATOCRIT 36.1 % (42.0-52.0); LYMPH # 1.8 10*3/uL (1.3-4.4); LYMPH % 38.4 % (27.0-41.0); MEAN CELL VOLUME 83.2 fl (80.0-94.0); MEAN CORPUSCULAR HGB 30.2 pg (27.0-31.0); MEAN CORPUSCULAR HGB CONC 36.3 g/dl (33.0-37.0); MEAN PLATELET VOLUME 10.2 fl (9.6-12.3); MONO # 0.5 10*3/uL (0.1-1.0); MONO % 11.6 % (3.0-9.0); NEUT # 2.2 10*3/uL (2.3-7.9); NEUT % 47.3 % (47.0-73.0); PLATELET COUNT AUTOMATED 201 10*3/uL (130-400); RED BLOOD COUNT 4.34 10*6/uL (4.50-5.90); WHITE BLOOD COUNT 4.6 10*3/uL (4.8-10.8)
[2020-11-19 16:33] LABS: ALBUMIN 3.1 gm/dl (3.1-4.5); ALKALINE PHOSPHATASE 71 U/L (45-117); BUN 17 mg/dl (7-24); CHLORIDE 105 mmol/L (98-107); CREATININE 0.58 mg/dL (0.70-1.30); SGOT/AST 7 IU/L (3-35); SGPT/ALT 14 U/L (12-78); SODIUM 137 mmol/L (136-145); TOTAL PROTEIN 5.9 gm/dL (6.4-8.2)
[2020-11-19 16:34] LABS: ETHYL ALCOHOL < 3.0 mg/dl (<3); TROPONIN I < 0.015 ng/ml (<0.045)
[2020-11-19 16:37] LABS: ABG BASE EXCESS -1.1 mmol/L (-2.0-2.0); ARTERIAL BLOOD GAS PH 7.395 (7.35-7.45); ARTERIAL BLOOD GAS PO2 83.1 (80-90)
[2020-11-19 17:10] VITALS: BP 120/68
== END 2020-11-19 17:22 | disposition home or self-care (01) ==
LOC: ED 15:39
PROVIDERS: Internal Medicine
DX: E86.0 Dehydration (principal); Z79.4 Long term (current) use of insulin; Z79.899 Other long term (current) drug therapy

== ENCOUNTER → 2021-01-08 | Outpatient (CLI) | payer OTHER | END | disposition home or self-care (01) | LOC: LAB 17:35 | PROVIDERS: ATTEND Family Medicine | DX: R10.9 Unspecified abdominal pain (principal) ==

== ENCOUNTER → 2021-01-09 | Outpatient (CLI) | payer OTHER ==
[2021-01-09 13:38] LABS: BILIRUBIN Negative (Negative); BLOOD Negative (Negative); CLARITY Clear (Clear); COLOR Yellow (Yellow); GLUCOSE 3+ (Negative); KETONE Negative (Negative); LEUKO ESTERASE Negative (Negative); NITRITE Negative (Negative); SPECIFIC GRAVITY >= 1.030 (1.001-1.030); UROBILINOGEN 0.2 E.U./dl (0.0-1.0)
[2021-01-09 14:01] LABS: BUN 15 mg/dl (7-24); CHLORIDE 104 mmol/L (98-107); CREATININE 0.64 mg/dL (0.70-1.30); SODIUM 136 mmol/L (136-145)
[2021-01-09 15:01] LABS: BACTERIA TRACE; WBC 0-2 wbc/hpf (0-5)
== END | disposition home or self-care (01) ==
LOC: LAB 12:50
PROVIDERS: ATTEND Internal Medicine
DX: R10.9 Unspecified abdominal pain (principal)

== ENCOUNTER 2021-05-28 17:39 | Emergency (ER) | payer OTHER | END 2021-05-28 19:30 | disposition left against medical advice (07) | LOC: ED 17:39 | DX: Z53.21 Procedure and treatment not carried out due to patient leaving prior to being seen by health care provider (principal) ==

== ENCOUNTER 2021-07-17 16:10 | Emergency (ER) | payer OTHER ==
[2021-07-17 16:26] LABS: MEAN PLATELET VOLUME 10.8 fl (9.6-12.3); RED CELL DISTRI WIDTH 11.9 % (0-14.5)
[2021-07-17 16:43] LABS: BASO # 0.1 10*3/uL (0.0-0.1); BASO % 1.2 % (0.0-1.0); EOS # 0.1 10*3/uL (0.0-0.4); EOS % 1.9 % (1.0-4.0); HEMATOCRIT 47.1 % (42.0-52.0); LYMPH # 1.4 10*3/uL (1.3-4.4); LYMPH % 33.7 % (27.0-41.0); MEAN CORPUSCULAR HGB 30.8 pg (27.0-31.0); MEAN CORPUSCULAR HGB CONC 36.7 g/dl (33.0-37.0); MONO # 0.5 10*3/uL (0.1-1.0); MONO % 12.1 % (3.0-9.0); NEUT # 2.1 10*3/uL (2.3-7.9); NEUT % 50.6 % (47.0-73.0); PLATELET COUNT AUTOMATED 232 10*3/uL (130-400); RED BLOOD COUNT 5.61 10*6/uL (4.50-5.90); WHITE BLOOD COUNT 4.2 10*3/uL (4.8-10.8)
[2021-07-17 16:59] LABS: ALBUMIN 3.7 gm/dl (3.1-4.5); ALKALINE PHOSPHATASE 77 U/L (45-117); BUN 20 mg/dl (7-24); CHLORIDE 103 mmol/L (98-107); CPK 23 U/L (39-308); CREATININE 0.76 mg/dL (0.70-1.30); POTASSIUM 3.7 mmol/L (3.5-5.1); SGOT/AST 9 IU/L (3-35); SGPT/ALT 22 U/L (12-78); SODIUM 136 mmol/L (136-145); TOTAL PROTEIN 7.2 gm/dL (6.4-8.2)
[2021-07-17 19:10] VITALS: BP 100/54
[2021-07-17 19:41] LABS: BILIRUBIN Negative (Negative); BLOOD Negative (Negative); CLARITY Clear (Clear); COLOR Yellow (Yellow); GLUCOSE 3+ (Negative); KETONE 1+ (Negative); LEUKO ESTERASE Negative (Negative); NITRITE Negative (Negative); PH 5.5 (4.5-8.0); SPECIFIC GRAVITY 1.025 (1.001-1.030)
[2021-07-17 19:54] LABS: BACTERIA TRACE; MUCOUS 1+
[2021-07-17 19:55] LABS: EPITHELIAL CELLS 0-2
== END 2021-07-17 20:18 | disposition home or self-care (01) ==
LOC: ED 16:10
PROVIDERS: Emergency Medicine
DX: R53.83 Other fatigue (principal); Z20.822 Contact with and (suspected) exposure to COVID-19; R53.1 Weakness; K21.9 Gastro-esophageal reflux disease without esophagitis; E10.9 Type 1 diabetes mellitus without complications

== ENCOUNTER 2021-07-19 14:18 | Emergency (ER) | payer OTHER ==
[~2021-07-19] VITALS: Ht 182.8 cm; Wt 63.5 kg
[2021-07-19 15:05] LABS: ALBUMIN 3.3 gm/dl (3.1-4.5); ALKALINE PHOSPHATASE 99 U/L (45-117); BUN 17 mg/dl (7-24); CHLORIDE 105 mmol/L (98-107); CREATININE 0.62 mg/dL (0.70-1.30); SGOT/AST 13 IU/L (3-35); SGPT/ALT 23 U/L (12-78); SODIUM 138 mmol/L (136-145); TOTAL PROTEIN 6.4 gm/dL (6.4-8.2)
[2021-07-19 15:13] VITALS: BP 118/58
[2021-07-19 15:17] LABS: BASO # 0.1 10*3/uL (0.0-0.1); BASO % 1.1 % (0.0-1.0); EOS # 0.2 10*3/uL (0.0-0.4); EOS % 3.6 % (1.0-4.0); HEMATOCRIT 42.1 % (42.0-52.0); LYMPH % 38.3 % (27.0-41.0); MEAN CELL VOLUME 84.9 fl (80.0-94.0); MEAN CORPUSCULAR HGB CONC 36.6 g/dl (33.0-37.0); MEAN PLATELET VOLUME 10.8 fl (9.6-12.3); MONO # 0.6 10*3/uL (0.1-1.0); MONO % 10.5 % (3.0-9.0); NEUT # 2.4 10*3/uL (2.3-7.9); NEUT % 46.1 % (47.0-73.0); PLATELET COUNT AUTOMATED 211 10*3/uL (130-400); RED BLOOD COUNT 4.96 10*6/uL (4.50-5.90); RED CELL DISTRI WIDTH 11.9 % (0-14.5); WHITE BLOOD COUNT 5.2 10*3/uL (4.8-10.8)
[2021-07-19 15:19] LABS: BILIRUBIN Negative (Negative); BLOOD Negative (Negative); CLARITY Clear (Clear); COLOR Yellow (Yellow); GLUCOSE 3+ (Negative); KETONE 2+ (Negative); LEUKO ESTERASE Negative (Negative); NITRITE Negative (Negative); PH 5.5 (4.5-8.0); SPECIFIC GRAVITY >= 1.030 (1.001-1.030); UROBILINOGEN 0.2 E.U./dl (0.0-1.0)
[2021-07-19 15:27] LABS: EPITHELIAL CELLS 0-2; RBC 0-2 rbc/hpf (0-2)
[2021-07-19 15:28] LABS: MUCOUS TRACE
[2021-07-19 15:32] LABS: BACTERIA TRACE; WBC 0-2 wbc/hpf (0-5)
== END 2021-07-19 16:57 | disposition home or self-care (01) ==
LOC: ED 14:18
PROVIDERS: Student in an Organized Health Care Education/Training Program
DX: E10.65 Type 1 diabetes mellitus with hyperglycemia (principal); L02.32 Furuncle of buttock; K21.9 Gastro-esophageal reflux disease without esophagitis; Z90.89 Acquired absence of other organs

== ENCOUNTER 2021-12-28 06:08 | Inpatient (IN) | payer OTHER ==
[~2021-12-28] VITALS: Ht 180.3 cm; Wt 75.3 kg
[2021-12-28 06:15] VITALS: BP 117/81
[2021-12-28 06:29] LABS: BASO # 0.1 10*3/uL (0.0-0.1); BASO % 0.8 % (0.0-1.0); EOS # 0.1 10*3/uL (0.0-0.4); EOS % 0.9 % (1.0-4.0); HEMATOCRIT 52.4 % (42.0-52.0); LYMPH # 2.3 10*3/uL (1.3-4.4); LYMPH % 19.7 % (27.0-41.0); MEAN CELL VOLUME 84.5 fl (80.0-94.0); MEAN CORPUSCULAR HGB 30.6 pg (27.0-31.0); MEAN CORPUSCULAR HGB CONC 36.3 g/dl (33.0-37.0); MONO # 0.9 10*3/uL (0.1-1.0); MONO % 7.9 % (3.0-9.0); NEUT # 8.2 10*3/uL (2.3-7.9); NEUT % 70.4 % (47.0-73.0); PLATELET COUNT AUTOMATED 290 10*3/uL (130-400); RED CELL DISTRI WIDTH 11.6 % (0-14.5); WHITE BLOOD COUNT 11.6 10*3/uL (4.8-10.8)
[2021-12-28 06:49] LABS: ALKALINE PHOSPHATASE 103 U/L (45-117); BUN 15 mg/dl (7-24); CHLORIDE 99 mmol/L (98-107); CREATININE 0.98 mg/dL (0.70-1.30); SGOT/AST 22 IU/L (3-35); SGPT/ALT 18 U/L (12-78); SODIUM 133 mmol/L (136-145); TOTAL PROTEIN 7.9 gm/dL (6.4-8.2)
[2021-12-28 06:52] LABS: POTASSIUM 4.1 mmol/L (3.5-5.1)
[2021-12-28 07:15] LABS: BILIRUBIN Negative (Negative); CLARITY Clear (Clear); COLOR Yellow (Yellow); GLUCOSE 3+ (Negative); KETONE 1+ (Negative)
[2021-12-28 07:16] LABS: BACTERIA TRACE; BLOOD Negative (Negative); EPITHELIAL CELLS 0-2; LEUKO ESTERASE Negative (Negative); MUCOUS TRACE; NITRITE Negative (Negative); PH 5.5 (4.5-8.0); UROBILINOGEN 0.2 E.U./dl (0.0-1.0); WBC 0-2 wbc/hpf (0-5)
[2021-12-28 09:18] LABS: BASO # 0.1 10*3/uL (0.0-0.1); BASO % 0.5 % (0.0-1.0); EOS # 0.1 10*3/uL (0.0-0.4); EOS % 0.8 % (1.0-4.0); HEMATOCRIT 50.2 % (42.0-52.0); LYMPH # 1.5 10*3/uL (1.3-4.4); LYMPH % 8.7 % (27.0-41.0); MEAN CELL VOLUME 84.8 fl (80.0-94.0); MEAN CORPUSCULAR HGB 30.7 pg (27.0-31.0); MEAN CORPUSCULAR HGB CONC 36.3 g/dl (33.0-37.0); MEAN PLATELET VOLUME 10.5 fl (9.6-12.3); MONO # 1.3 10*3/uL (0.1-1.0); MONO % 7.4 % (3.0-9.0); NEUT # 13.8 10*3/uL (2.3-7.9); NEUT % 82.2 % (47.0-73.0); PLATELET COUNT AUTOMATED 289 10*3/uL (130-400); RED BLOOD COUNT 5.92 10*6/uL (4.50-5.90); RED CELL DISTRI WIDTH 11.5 % (0-14.5); WHITE BLOOD COUNT 16.8 10*3/uL (4.8-10.8)
[2021-12-28 09:33] LABS: ALKALINE PHOSPHATASE 77 U/L (45-117); BUN 14 mg/dl (7-24); CHLORIDE 110 mmol/L (98-107); CREATININE 0.63 mg/dL (0.70-1.30); SGOT/AST 17 IU/L (3-35); SGPT/ALT 15 U/L (12-78); SODIUM 136 mmol/L (136-145); TOTAL PROTEIN 6.9 gm/dL (6.4-8.2)
[2021-12-28 09:35] LABS: POTASSIUM 4.6 mmol/L (3.5-5.1)
[2021-12-28 13:00] VITALS: BP 108/60
[2021-12-28] MEDS ORDERED: PREGABALIN150 MG PO (13:27)
[2021-12-28 16:00] VITALS: BP 123/85
[2021-12-28 17:11] LABS: BUN 11 mg/dl (7-24); CHLORIDE 108 mmol/L (98-107); CREATININE 0.64 mg/dL (0.70-1.30); POTASSIUM 4.2 mmol/L (3.5-5.1); SODIUM 134 mmol/L (136-145)
== END 2021-12-28 19:15 | disposition left against medical advice (07) | DRG 420 ==
LOC: ED 06:08 → 4E 10:01 → EDHOLD 10:01 → 4E 11:12 → EDHOLD 11:12 → 4E 11:12 → EDHOLD 12:24 → ICCU 12:35
PROVIDERS: Emergency Medicine; ADMIT Internal Medicine; ATTEND Internal Medicine
DX: E10.10 Type 1 diabetes mellitus with ketoacidosis without coma (principal); K21.00 Gastro-esophageal reflux disease with esophagitis, without bleeding; E87.1 Hypo-osmolality and hyponatremia; E86.0 Dehydration; E10.42 Type 1 diabetes mellitus with diabetic polyneuropathy; Z53.29 Procedure and treatment not carried out because of patient's decision for other reasons; Z91.14 Patient's other noncompliance with medication regimen

== ENCOUNTER 2022-03-23 21:58 | Emergency (ER) | payer OTHER ==
[~2022-03-23] VITALS: Ht 182.8 cm; Wt 70.8 kg
[~2022-03-23 21:58] MED LIST changes: +PREGABALIN150 MG PO
[2022-03-23 22:11] VITALS: BP 122/80
[2022-03-23] MEDS ORDERED: INSULIN AS100 UNIT/3 SQ (22:22)
[2022-03-23] MEDS ORDERED: LIDODERM1 EACH T (23:17)
[2022-03-23] MEDS ORDERED: RELAFEN500 M1 PO (23:17)
[2022-03-23] MEDS ORDERED: PREDNISONE20 M1 PO (23:17)
[2022-03-24] MEDS ORDERED: LYRICA300 MG PO (00:08)
[2022-03-24] MEDS ORDERED: NAPROSYN500 MG PO (22:50)
== END 2022-03-24 00:35 | disposition home or self-care (01) ==
LOC: ED 21:58
DX: M54.32 Sciatica, left side (principal); G62.89 Other specified polyneuropathies; E10.9 Type 1 diabetes mellitus without complications

== ENCOUNTER 2022-03-24 21:06 | Emergency (ER) | payer OTHER ==
[~2022-03-24] VITALS: Ht 182.8 cm; Wt 68.0 kg
[~2022-03-24 21:06] MED LIST changes: +INSULIN AS100 UNIT/3 SQ; +LIDODERM1 EACH T; +LYRICA300 MG PO; +PREDNISONE20 M1 PO; +RELAFEN500 M1 PO
[2022-03-24 21:22] VITALS: BP 124/81
[2022-03-24] MEDS ORDERED: NAPROSYN500 MG PO (22:50)
== END 2022-03-24 22:51 | disposition home or self-care (01) ==
LOC: ED 21:06
DX: M25.462 Effusion, left knee (principal); Z90.89 Acquired absence of other organs

== ENCOUNTER → 2022-04-15 | Outpatient (CLI) | payer OTHER | END | disposition home or self-care (01) | LOC: RAD 15:26 | PROVIDERS: ATTEND Internal Medicine | DX: M25.462 Effusion, left knee (principal) ==

== ENCOUNTER 2022-07-01 17:32 | Emergency (ER) | payer OTHER ==
[~2022-07-01] VITALS: Wt 63.5 kg
[2022-07-01 17:38] VITALS: BP 141/76
[2022-07-01 18:22] LABS: BASO % 0.4 % (0.0-1.0); EOS # 0.1 10*3/uL (0.0-0.4); EOS % 1.1 % (1.0-4.0); HEMATOCRIT 49.5 % (42.0-52.0); LYMPH # 0.3 10*3/uL (1.3-4.4); LYMPH % 3.6 % (27.0-41.0); MEAN CELL VOLUME 86.2 fl (80.0-94.0); MEAN CORPUSCULAR HGB 30.7 pg (27.0-31.0); MEAN CORPUSCULAR HGB CONC 35.6 g/dl (33.0-37.0); MEAN PLATELET VOLUME 10.4 fl (9.6-12.3); MONO # 0.5 10*3/uL (0.1-1.0); MONO % 5.6 % (3.0-9.0); NEUT # 7.2 10*3/uL (2.3-7.9); NEUT % 89.1 % (47.0-73.0); PLATELET COUNT AUTOMATED 208 10*3/uL (130-400); RED BLOOD COUNT 5.74 10*6/uL (4.50-5.90); RED CELL DISTRI WIDTH 12.2 % (0-14.5); WHITE BLOOD COUNT 8.1 10*3/uL (4.8-10.8)
[2022-07-01 18:43] LABS: ALKALINE PHOSPHATASE 52 U/L (46-116); BUN 20 mg/dl (9-23); CHLORIDE 102 mmol/L (98-107); POTASSIUM 3.9 mmol/L (3.4-5.1); SGPT/ALT 8 U/L (10-49); TOTAL PROTEIN 6.8 gm/dL (6.0-8.0)
[2022-07-01 20:43] LABS: BILIRUBIN 3+ (Negative); BLOOD Negative (Negative); CLARITY Cloudy (Clear); COLOR Dark Yellow (Yellow); GLUCOSE 3+ (Negative); KETONE 1+ (Negative); LEUKO ESTERASE Negative (Negative); NITRITE Negative (Negative); SPECIFIC GRAVITY >= 1.030 (1.001-1.030)
[2022-07-01 20:54] LABS: HYALINE CAST 16-20
[2022-07-01 20:55] LABS: URIC ACID CRYSTALS 1+
[2022-07-01] MEDS ORDERED: ONDANSETRON4 MG SL (21:14)
== END 2022-07-01 21:26 | disposition home or self-care (01) ==
LOC: ED 17:32
PROVIDERS: Student in an Organized Health Care Education/Training Program
DX: A08.4 Viral intestinal infection, unspecified (principal); E83.42 Hypomagnesemia; E11.9 Type 2 diabetes mellitus without complications; Z90.89 Acquired absence of other organs

== ENCOUNTER 2022-08-29 21:28 | Emergency (ER) | payer OTHER ==
[~2022-08-29] VITALS: Ht 182.8 cm; Wt 67.4 kg
[~2022-08-29 21:28] MED LIST changes: +ONDANSETRON4 MG SL
[2022-08-29 21:37] VITALS: BP 118/81
[2022-08-29] MEDS ORDERED: [UNRECOGNIZED DRUG - CODE] PO (21:45)
== END 2022-08-29 22:51 | disposition home or self-care (01) ==
LOC: ED 21:28
DX: K59.00 Constipation, unspecified (principal); K21.00 Gastro-esophageal reflux disease with esophagitis, without bleeding; Z90.89 Acquired absence of other organs

== ENCOUNTER 2022-09-03 22:30 | Emergency (ER) | payer OTHER ==
[~2022-09-03] VITALS: Wt 72.6 kg
[~2022-09-03 22:30] MED LIST changes: +[UNRECOGNIZED DRUG - CODE] PO
[2022-09-03 22:47] VITALS: BP 126/78
[2022-09-04 00:40] LABS: BASO % 0.3 % (0.0-1.0); EOS # 0.1 10*3/uL (0.0-0.4); EOS % 2.2 % (1.0-4.0); HEMATOCRIT 42.1 % (42.0-52.0); LYMPH # 1.7 10*3/uL (1.3-4.4); MEAN CELL VOLUME 83.2 fl (80.0-94.0); MEAN CORPUSCULAR HGB 30.6 pg (27.0-31.0); MEAN CORPUSCULAR HGB CONC 36.8 g/dl (33.0-37.0); MEAN PLATELET VOLUME 10.9 fl (9.6-12.3); MONO # 0.4 10*3/uL (0.1-1.0); MONO % 7.1 % (3.0-9.0); NEUT # 3.6 10*3/uL (2.3-7.9); NEUT % 61.2 % (47.0-73.0); PLATELET COUNT AUTOMATED 233 10*3/uL (130-400); RED BLOOD COUNT 5.06 10*6/uL (4.50-5.90); RED CELL DISTRI WIDTH 11.5 % (0-14.5); WHITE BLOOD COUNT 5.9 10*3/uL (4.8-10.8)
[2022-09-04 00:56] LABS: ALKALINE PHOSPHATASE 54 U/L (46-116); BUN 6 mg/dl (9-23); CHLORIDE 105 mmol/L (98-107); LIPASE 28 U/L (12-53); POTASSIUM 3.8 mmol/L (3.4-5.1); TOTAL PROTEIN 6.2 gm/dL (6.0-8.0)
[2022-09-04 01:04] LABS: SGPT/ALT < 7 U/L (10-49)
[2022-09-04 01:21] LABS: BILIRUBIN Negative (Negative); BLOOD Negative (Negative); CLARITY Clear (Clear); COLOR Yellow (Yellow); GLUCOSE 3+ (Negative); KETONE 1+ (Negative); LEUKO ESTERASE Negative (Negative); NITRITE Negative (Negative); SPECIFIC GRAVITY >= 1.030 (1.001-1.030)
[2022-09-04 02:06] LABS: RBC 0-2 rbc/hpf (0-2); WBC 0-2 wbc/hpf (0-5)
== END 2022-09-04 03:31 | disposition home or self-care (01) ==
LOC: ED 22:30
PROVIDERS: Emergency Medicine
DX: R10.9 Unspecified abdominal pain (principal); R07.9 Chest pain, unspecified; R11.0 Nausea; Z90.89 Acquired absence of other organs

== ENCOUNTER 2022-09-29 19:56 | Emergency (ER) | payer OTHER ==
[2022-09-29 20:58] LABS: BASO # 0.1 10*3/uL (0.0-0.1); EOS # 0.3 10*3/uL (0.0-0.4); EOS % 3.7 % (1.0-4.0); LYMPH # 2.2 10*3/uL (1.3-4.4); LYMPH % 31.3 % (27.0-41.0); MEAN CELL VOLUME 84.6 fl (80.0-94.0); MEAN CORPUSCULAR HGB CONC 36.6 g/dl (33.0-37.0); MEAN PLATELET VOLUME 10.8 fl (9.6-12.3); MONO # 0.7 10*3/uL (0.1-1.0); MONO % 10.4 % (3.0-9.0); NEUT # 3.7 10*3/uL (2.3-7.9); NEUT % 53.3 % (47.0-73.0); PLATELET COUNT AUTOMATED 229 10*3/uL (130-400); RED CELL DISTRI WIDTH 11.9 % (0-14.5)
[2022-09-29 21:03] LABS: ALKALINE PHOSPHATASE 53 U/L (46-116); BUN 8 mg/dl (9-23); CHLORIDE 102 mmol/L (98-107); POTASSIUM 3.1 mmol/L (3.4-5.1); TOTAL PROTEIN 6.5 gm/dL (6.0-8.0)
[2022-09-29 21:05] LABS: SGPT/ALT < 7 U/L (10-49)
[2022-09-29 22:00] VITALS: BP 108/71
[2022-09-29 22:47] LABS: BILIRUBIN Negative (Negative); BLOOD Negative (Negative); CLARITY Turbid (Clear); COLOR Dark Yellow (Yellow); GLUCOSE 2+ (Negative); KETONE Trace (Negative); LEUKO ESTERASE Trace (Negative); NITRITE Negative (Negative); SPECIFIC GRAVITY >= 1.030 (1.001-1.030)
[2022-09-29 23:04] LABS: MUCOUS 2+
== END 2022-09-30 01:54 | disposition home or self-care (01) ==
LOC: ED 19:56
PROVIDERS: Emergency Medicine
DX: F41.9 Anxiety disorder, unspecified (principal); E87.6 Hypokalemia; E83.42 Hypomagnesemia; K21.9 Gastro-esophageal reflux disease without esophagitis; E11.65 Type 2 diabetes mellitus with hyperglycemia; E11.10 Type 2 diabetes mellitus with ketoacidosis without coma; E83.51 Hypocalcemia; E87.1 Hypo-osmolality and hyponatremia; Z90.89 Acquired absence of other organs; Z79.4 Long term (current) use of insulin

== ENCOUNTER → 2022-12-02 | Outpatient (CLI) | payer OTHER | END | disposition home or self-care (01) | LOC: US 16:00 | PROVIDERS: ATTEND Internal Medicine | DX: M79.672 Pain in left foot (principal) ==

== ENCOUNTER 2023-01-19 19:37 | Emergency (ER) | payer OTHER ==
[~2023-01-19] VITALS: Ht 182.8 cm; Wt 63.5 kg
[2023-01-19 19:51] VITALS: BP 111/69
[2023-01-19] MEDS ORDERED: TRAZODONE50 MG PO (19:52)
[2023-01-19] MEDS ORDERED: CYMBALTA30 MG PO (19:53)
[2023-01-19 20:24] LABS: BASO # 0.1 10*3/uL (0.0-0.1); EOS # 0.2 10*3/uL (0.0-0.4); EOS % 4.5 % (1.0-4.0); LYMPH # 2.1 10*3/uL (1.3-4.4); LYMPH % 40.2 % (27.0-41.0); MEAN CORPUSCULAR HGB 30.9 pg (27.0-31.0); MEAN CORPUSCULAR HGB CONC 35.1 g/dl (33.0-37.0); MEAN PLATELET VOLUME 10.9 fl (9.6-12.3); MONO # 0.4 10*3/uL (0.1-1.0); MONO % 7.8 % (3.0-9.0); NEUT # 2.4 10*3/uL (2.3-7.9); NEUT % 46.3 % (47.0-73.0); PLATELET COUNT AUTOMATED 233 10*3/uL (130-400); RED BLOOD COUNT 4.43 10*6/uL (4.50-5.90); RED CELL DISTRI WIDTH 12.2 % (0-14.5); WHITE BLOOD COUNT 5.1 10*3/uL (4.8-10.8)
[2023-01-19 20:39] LABS: INTERNATIONAL NORM RATIO 1.1 (2.0-3.5)
[2023-01-19 20:58] LABS: ALKALINE PHOSPHATASE 73 U/L (46-116); BUN 8 mg/dl (9-23); CHLORIDE 101 mmol/L (98-107); LIPASE 23 U/L (12-53); SGPT/ALT 29 U/L (10-49); TOTAL PROTEIN 5.9 gm/dL (6.0-8.0)
[2023-01-19 22:15] LABS: BILIRUBIN Negative (Negative); BLOOD Negative (Negative); CLARITY Clear (Clear); COLOR Yellow (Yellow); GLUCOSE 3+ (Negative); KETONE Negative (Negative); LEUKO ESTERASE Negative (Negative); NITRITE Negative (Negative); PH 5.5 (4.5-8.0); SPECIFIC GRAVITY >= 1.030 (1.001-1.030); UROBILINOGEN 0.2 E.U./dl (0.0-1.0)
[2023-01-19] MEDS ORDERED: ATORVASTATIN CA40 M1 PO (22:18)
[2023-01-19] MEDS ORDERED: LANTUS SOL100 UNIT/1 SC (22:20)
[2023-01-19 22:51] LABS: EPITHELIAL CELLS 0-2; MUCOUS TRACE
== END 2023-01-19 23:04 | disposition home or self-care (01) ==
LOC: ED 19:37
PROVIDERS: Internal Medicine
DX: E11.65 Type 2 diabetes mellitus with hyperglycemia (principal); R19.7 Diarrhea, unspecified; R11.0 Nausea; R06.02 Shortness of breath; R10.9 Unspecified abdominal pain; Z79.899 Other long term (current) drug therapy; Z79.4 Long term (current) use of insulin

== ENCOUNTER 2023-02-05 14:01 | Emergency (ER) | payer OTHER ==
[~2023-02-05] VITALS: Ht 182.8 cm; Wt 77.1 kg
[~2023-02-05 14:01] MED LIST changes: +ATORVASTATIN CA40 M1 PO; +CYMBALTA30 MG PO; +LANTUS SOL100 UNIT/1 SC; +TRAZODONE50 MG PO
[2023-02-05 15:18] LABS: BASO # 0.1 10*3/uL (0.0-0.1); BASO % 0.9 % (0.0-1.0); EOS # 0.3 10*3/uL (0.0-0.4); EOS % 3.1 % (1.0-4.0); HEMATOCRIT 47.5 % (42.0-52.0); LYMPH # 1.8 10*3/uL (1.3-4.4); LYMPH % 19.7 % (27.0-41.0); MEAN CELL VOLUME 86.4 fl (80.0-94.0); MEAN CORPUSCULAR HGB 30.7 pg (27.0-31.0); MEAN CORPUSCULAR HGB CONC 35.6 g/dl (33.0-37.0); MONO # 0.7 10*3/uL (0.1-1.0); MONO % 7.2 % (3.0-9.0); NEUT # 6.2 10*3/uL (2.3-7.9); NEUT % 68.8 % (47.0-73.0); PLATELET COUNT AUTOMATED 246 10*3/uL (130-400); RED CELL DISTRI WIDTH 12.4 % (0-14.5); VENOUS PH 7.319 (7.37-7.45)
[2023-02-05 15:28] LABS: ACT PARTIAL THROMBO TIME 29.5 SECONDS (20.0-32.1)
[2023-02-05 15:41] LABS: ALKALINE PHOSPHATASE 83 U/L (46-116); BUN 15 mg/dl (9-23); CHLORIDE 99 mmol/L (98-107); POTASSIUM 3.9 mmol/L (3.4-5.1); SGPT/ALT 8 U/L (10-49); TOTAL PROTEIN 7.6 gm/dL (6.0-8.0)
[2023-02-05 16:08] VITALS: BP 97/59
[2023-02-05] MEDS ORDERED: MIDODRINE HCL5 M1 PO (17:48)
== END 2023-02-05 17:54 | disposition home or self-care (01) ==
LOC: ED 14:01
PROVIDERS: Emergency Medicine
DX: I95.1 Orthostatic hypotension (principal); K21.9 Gastro-esophageal reflux disease without esophagitis; E11.9 Type 2 diabetes mellitus without complications; Z79.4 Long term (current) use of insulin; F90.9 Attention-deficit hyperactivity disorder, unspecified type; Z90.89 Acquired absence of other organs

== ENCOUNTER → 2023-03-19 | Outpatient (CLI) | payer OTHER ==
[~2023-03-19] MED LIST changes: +MIDODRINE HCL5 M1 PO
== END | disposition home or self-care (01) ==
LOC: CARD 11:23
PROVIDERS: ATTEND Internal Medicine
DX: I95.1 Orthostatic hypotension (principal); R00.0 Tachycardia, unspecified

== ENCOUNTER → 2023-07-06 | Outpatient (CLI) | payer OTHER ==
[~2023-07-06] MED LIST changes: +ATIVAN0.5 MG PO; +ZOLOFT25 MG PO
[2023-07-06 16:19] LABS: BUN 8 mg/dl (9-23); CHLORIDE 99 mmol/L (98-107); POTASSIUM 4.9 mmol/L (3.4-5.1)
== END | disposition home or self-care (01) ==
LOC: LAB 15:21
PROVIDERS: ATTEND Internal Medicine
DX: U07.1 COVID-19 (principal)

== ENCOUNTER 2023-08-07 11:56 | Emergency (ER) | payer OTHER ==
[~2023-08-07] VITALS: Ht 182.8 cm; Wt 74.8 kg
[2023-08-07 13:00] LABS: BASO # 0.1 10*3/uL (0.0-0.1); BASO % 1.1 % (0.0-1.0); EOS # 0.3 10*3/uL (0.0-0.4); EOS % 4.7 % (1.0-4.0); HEMATOCRIT 40.7 % (42.0-52.0); LYMPH # 1.9 10*3/uL (1.3-4.4); MEAN CELL VOLUME 84.3 fl (80.0-94.0); MEAN CORPUSCULAR HGB 29.2 pg (27.0-31.0); MEAN CORPUSCULAR HGB CONC 34.6 g/dl (33.0-37.0); MEAN PLATELET VOLUME 10.9 fl (9.6-12.3); MONO # 0.6 10*3/uL (0.1-1.0); MONO % 9.5 % (3.0-9.0); NEUT # 3.6 10*3/uL (2.3-7.9); NEUT % 55.4 % (47.0-73.0); PLATELET COUNT AUTOMATED 222 10*3/uL (130-400); RED BLOOD COUNT 4.83 10*6/uL (4.50-5.90); RED CELL DISTRI WIDTH 12.3 % (0-14.5); WHITE BLOOD COUNT 6.4 10*3/uL (4.8-10.8)
[2023-08-07 13:09] LABS: ACT PARTIAL THROMBO TIME 27.5 SECONDS (20.0-32.1)
[2023-08-07 13:24] LABS: ALKALINE PHOSPHATASE 71 U/L (46-116); BUN 12 mg/dl (9-23); CHLORIDE 98 mmol/L (98-107); LIPASE 92 U/L (12-53); TOTAL PROTEIN 6.5 gm/dL (6.0-8.0)
[2023-08-07 13:28] LABS: ETHYL ALCOHOL < 3.0 mg/dl (<3); SGPT/ALT < 7 U/L (5-49)
[2023-08-07 13:39] LABS: BILIRUBIN Negative (Negative); BLOOD Negative (Negative); CLARITY Clear (Clear); COLOR Yellow (Yellow); GLUCOSE 3+ (Negative); KETONE Negative (Negative); LEUKO ESTERASE Negative (Negative); NITRITE Negative (Negative); PH 5.5 (4.5-8.0); SPECIFIC GRAVITY >= 1.030 (1.001-1.030); UROBILINOGEN 0.2 E.U./dl (0.0-1.0)
[2023-08-07 13:48] LABS: URINE AMPHETAMINES Negative (1000ng/ml); URINE BARBITURATES Negative (200ng/ml); URINE BENZODIAZEPINES Negative (200ng/ml); URINE CANNABINOIDS (THC) Negative (50ng/ml); URINE COCAINE Negative (300ng/ml); URINE METHADONE Negative (300ng/ml); URINE OPIATES Negative (300ng/ml); URINE PHENCYCLIDINE Negative (25ng/ml)
[2023-08-07 13:53] LABS: BACTERIA TRACE
[2023-08-07 13:58] VITALS: BP 101/60
[2023-08-07] MEDS ORDERED: POTASSIUM CHLORIDE 20 MEQ TAB PO ONE (14:15)
== END 2023-08-07 14:19 | disposition home or self-care (01) ==
LOC: ED 11:56
PROVIDERS: Internal Medicine
DX: R55 Syncope and collapse (principal); E87.6 Hypokalemia; K21.9 Gastro-esophageal reflux disease without esophagitis; E11.9 Type 2 diabetes mellitus without complications; Z79.4 Long term (current) use of insulin; F90.9 Attention-deficit hyperactivity disorder, unspecified type; Z90.89 Acquired absence of other organs; Z79.899 Other long term (current) drug therapy

== ENCOUNTER 2023-10-21 07:51 | Emergency (ER) | payer OTHER ==
[~2023-10-21] VITALS: Ht 182 cm; Wt 72.6 kg
[2023-10-21 08:01] VITALS: BP 115/74
[2023-10-21] MEDS ORDERED: Ketorolac Tromethamine 30 MG/ML VIAL IM ONE (08:30)
== END 2023-10-21 08:39 | disposition home or self-care (01) ==
LOC: ED 07:51
DX: S63.612A Unspecified sprain of right middle finger, initial encounter (principal); K21.9 Gastro-esophageal reflux disease without esophagitis; E11.9 Type 2 diabetes mellitus without complications; Z79.4 Long term (current) use of insulin; F90.9 Attention-deficit hyperactivity disorder, unspecified type; Z90.89 Acquired absence of other organs; X58.XXXA Exposure to other specified factors, initial encounter; Y93.89 Activity, other specified; Y92.89 Other specified places as the place of occurrence of the external cause; Y99.0 Civilian activity done for income or pay

== ENCOUNTER → 2023-12-25 | Outpatient (CLI) | payer OTHER | END | disposition home or self-care (01) | LOC: LAB 14:26 | PROVIDERS: ATTEND Internal Medicine | DX: E11.9 Type 2 diabetes mellitus without complications (principal) ==

== ENCOUNTER → 2024-01-20 | Outpatient (CLI) | payer OTHER | END | disposition home or self-care (01) | LOC: CARD 10:14 | PROVIDERS: ATTEND Internal Medicine | DX: I35.1 Nonrheumatic aortic (valve) insufficiency (principal); R07.2 Precordial pain ==

== ENCOUNTER 2024-05-25 21:03 | Emergency (ER) | payer OTHER ==
[~2024-05-25] VITALS: Wt 86.2 kg
[2024-05-25 21:14] VITALS: BP 131/77
[2024-05-25] MEDS ORDERED: [UNRECOGNIZED DRUG - SUPPLY] SC (21:15)
[2024-05-25 21:37] LABS: BASO % 0.5 % (0.0-1.0); EOS # 0.3 10*3/uL (0.0-0.4); EOS % 3.3 % (1.0-4.0); HEMATOCRIT 37.3 % (42.0-52.0); MEAN CELL VOLUME 86.1 fl (80.0-94.0); MEAN CORPUSCULAR HGB 28.9 pg (27.0-31.0); MEAN CORPUSCULAR HGB CONC 33.5 g/dl (33.0-37.0); MEAN PLATELET VOLUME 9.8 fl (9.6-12.3); MONO # 0.9 10*3/uL (0.1-1.0); MONO % 11.6 % (3.0-9.0); NEUT % 65.5 % (47.0-73.0); PLATELET COUNT AUTOMATED 276 10*3/uL (130-400); RED BLOOD COUNT 4.33 10*6/uL (4.50-5.90); RED CELL DISTRI WIDTH 12.1 % (0-14.5); WHITE BLOOD COUNT 7.6 10*3/uL (4.8-10.8)
[2024-05-25 21:55] LABS: ALKALINE PHOSPHATASE 74 U/L (46-116); BUN 10 mg/dl (9-23); CHLORIDE 106 mmol/L (98-107); LIPASE 22 U/L (12-53); POTASSIUM 4.4 mmol/L (3.4-5.1); SGPT/ALT 10 U/L (5-49)
[2024-05-25 22:13] LABS: BILIRUBIN Negative (Negative); BLOOD 3+ (Negative); CLARITY Turbid (Clear); COLOR Dark Yellow (Yellow); GLUCOSE Trace (Negative); KETONE Negative (Negative); LEUKO ESTERASE 3+ (Negative); NITRITE Positive (Negative)
[2024-05-25 22:22] LABS: BACTERIA 3+; RBC TNTC rbc/hpf (0-2); WBC TNTC wbc/hpf (0-5)
[2024-05-26] MEDS ORDERED: Ketorolac Tromethamine 60 MG/2 ML VIAL IM ONE (00:45)
[2024-05-26] MEDS ORDERED: Ciprofloxacin Hydrochloride 500 MG TAB PO ONE (00:45)
[2024-05-26] MEDS ORDERED: CIPRO500 MG PO (00:49)
== END 2024-05-26 00:57 | disposition home or self-care (01) ==
LOC: ED 21:03
PROVIDERS: Internal Medicine
DX: N39.0 Urinary tract infection, site not specified (principal); E44.1 Mild protein-calorie malnutrition; Z68.1 Body mass index [BMI] 19.9 or less, adult; D64.9 Anemia, unspecified; K21.9 Gastro-esophageal reflux disease without esophagitis; F90.9 Attention-deficit hyperactivity disorder, unspecified type; E10.65 Type 1 diabetes mellitus with hyperglycemia; Z79.4 Long term (current) use of insulin; Z90.89 Acquired absence of other organs

== ENCOUNTER 2024-05-31 23:23 | Emergency (ER) | payer OTHER ==
[~2024-05-31] VITALS: Ht 182.8 cm; Wt 86.2 kg
[~2024-05-31 23:23] MED LIST changes: +CIPRO500 MG PO; +[UNRECOGNIZED DRUG - SUPPLY] SC
[2024-05-31] MEDS ORDERED: MIRALAX17 GM PO (23:34)
[2024-05-31 23:35] VITALS: BP 108/71
[2024-06-01 00:16] LABS: BASO # 0.1 10*3/uL (0.0-0.1); BASO % 0.5 % (0.0-1.0); EOS # 0.4 10*3/uL (0.0-0.4); EOS % 3.4 % (1.0-4.0); HEMATOCRIT 40.2 % (42.0-52.0); MEAN CORPUSCULAR HGB CONC 33.3 g/dl (33.0-37.0); MEAN PLATELET VOLUME 10.2 fl (9.6-12.3); MONO # 0.9 10*3/uL (0.1-1.0); MONO % 8.2 % (3.0-9.0); NEUT # 7.3 10*3/uL (2.3-7.9); NEUT % 69.3 % (47.0-73.0); PLATELET COUNT AUTOMATED 375 10*3/uL (130-400); RED BLOOD COUNT 4.62 10*6/uL (4.50-5.90); RED CELL DISTRI WIDTH 12.1 % (0-14.5); WHITE BLOOD COUNT 10.5 10*3/uL (4.8-10.8)
[2024-06-01 00:29] LABS: BILIRUBIN Negative (Negative); BLOOD Negative (Negative); CLARITY Clear (Clear); COLOR Yellow (Yellow); GLUCOSE 2+ (Negative); KETONE Negative (Negative); LEUKO ESTERASE Negative (Negative); NITRITE Negative (Negative)
[2024-06-01 00:38] LABS: ALKALINE PHOSPHATASE 69 U/L (46-116); BUN 6 mg/dl (9-23); CHLORIDE 101 mmol/L (98-107); POTASSIUM 3.9 mmol/L (3.4-5.1); SGPT/ALT 7 U/L (5-49); TOTAL PROTEIN 7.2 gm/dL (6.0-8.0)
[2024-06-01] MEDS ORDERED: HYDROCORTISONE ACETATE 25 MG SUPP R ONE (02:10)
[2024-06-01] MEDS ORDERED: Ketorolac Tromethamine 60 MG/2 ML VIAL IM ONE (02:10)
== END 2024-06-01 02:32 | disposition home or self-care (01) ==
LOC: ED 23:23
PROVIDERS: Internal Medicine
DX: K64.8 Other hemorrhoids (principal); E10.65 Type 1 diabetes mellitus with hyperglycemia; Z79.2 Long term (current) use of antibiotics; Z79.4 Long term (current) use of insulin; Z79.899 Other long term (current) drug therapy

== ENCOUNTER 2024-06-07 17:55 | Emergency (ER) | payer OTHER ==
[~2024-06-07] VITALS: Ht 182.8 cm; Wt 77.1 kg
[~2024-06-07 17:55] MED LIST changes: +MIRALAX17 GM PO
[2024-06-07 18:16] VITALS: BP 140/81
[2024-06-07] MEDS ORDERED: Na Phos, Dibasic/Na Phos, Mo 1 EA BOT R ONE (18:30)
[2024-06-07] MEDS ORDERED: Ondansetron Hydrochloride 4 MG TAB PO ONE (18:30)
[2024-06-07] MEDS ORDERED: MAGNESIUM CITRATE 296 ML BOT PO ONE (18:30)
[2024-06-07] MEDS ORDERED: Doxycycline Hyclate 100 MG CAP PO ONE (18:30)
[2024-06-07 18:53] LABS: BASO # 0.1 10*3/uL (0.0-0.1); BASO % 0.6 % (0.0-1.0); EOS # 0.3 10*3/uL (0.0-0.4); EOS % 3.3 % (1.0-4.0); HEMATOCRIT 35.8 % (42.0-52.0); MEAN CORPUSCULAR HGB CONC 34.1 g/dl (33.0-37.0); MEAN PLATELET VOLUME 10.8 fl (9.6-12.3); MONO # 1.1 10*3/uL (0.1-1.0); MONO % 10.2 % (3.0-9.0); NEUT # 7.8 10*3/uL (2.3-7.9); NEUT % 74.6 % (47.0-73.0); PLATELET COUNT AUTOMATED 324 10*3/uL (130-400); RED BLOOD COUNT 4.21 10*6/uL (4.50-5.90); RED CELL DISTRI WIDTH 12.2 % (0-14.5); WHITE BLOOD COUNT 10.4 10*3/uL (4.8-10.8)
[2024-06-07 19:20] LABS: BUN 10 mg/dl (9-23); CHLORIDE 102 mmol/L (98-107); POTASSIUM 3.8 mmol/L (3.4-5.1)
[2024-06-07 20:16] LABS: BILIRUBIN Negative (Negative); BLOOD Negative (Negative); CLARITY Clear (Clear); COLOR Yellow (Yellow); GLUCOSE 3+ (Negative); KETONE Trace (Negative); LEUKO ESTERASE Trace (Negative); NITRITE Negative (Negative); PH 6.5 (4.5-8.0); UROBILINOGEN 0.2 E.U./dl (0.0-1.0)
[2024-06-07 20:29] LABS: BACTERIA 1+; MUCOUS TRACE; RBC 0-2 rbc/hpf (0-2)
== END 2024-06-07 21:28 | disposition home or self-care (01) ==
LOC: ED 17:55
PROVIDERS: Nurse Practitioner
DX: K59.00 Constipation, unspecified (principal); K62.89 Other specified diseases of anus and rectum; E11.9 Type 2 diabetes mellitus without complications; Z79.899 Other long term (current) drug therapy; Z79.4 Long term (current) use of insulin; Z90.89 Acquired absence of other organs

== ENCOUNTER 2024-06-09 16:05 | Emergency (ER) | payer OTHER ==
[~2024-06-09] VITALS: Ht 182.8 cm; Wt 79.4 kg
[2024-06-09] MEDS ORDERED: ACETAMINOPHEN 325 MG TAB PO ONE (17:00)
[2024-06-09] MEDS ORDERED: IOHEXOL 300 MG/ML 100 ML VIAL IV ONE (17:10)
[2024-06-09 17:14] LABS: BASO # 0.1 10*3/uL (0.0-0.1); BASO % 0.4 % (0.0-1.0); EOS # 0.2 10*3/uL (0.0-0.4); HEMATOCRIT 35.5 % (42.0-52.0); MEAN CELL VOLUME 85.5 fl (80.0-94.0); MEAN CORPUSCULAR HGB 28.4 pg (27.0-31.0); MEAN CORPUSCULAR HGB CONC 33.2 g/dl (33.0-37.0); MEAN PLATELET VOLUME 10.9 fl (9.6-12.3); MONO # 1.1 10*3/uL (0.1-1.0); MONO % 9.7 % (3.0-9.0); NEUT # 9.1 10*3/uL (2.3-7.9); NEUT % 77.8 % (47.0-73.0); PLATELET COUNT AUTOMATED 353 10*3/uL (130-400); RED BLOOD COUNT 4.15 10*6/uL (4.50-5.90); RED CELL DISTRI WIDTH 12.1 % (0-14.5); WHITE BLOOD COUNT 11.7 10*3/uL (4.8-10.8)
[2024-06-09 17:25] LABS: BILIRUBIN Negative (Negative); BLOOD Negative (Negative); CLARITY Clear (Clear); COLOR Yellow (Yellow); GLUCOSE 3+ (Negative); KETONE Trace (Negative); LEUKO ESTERASE Negative (Negative); NITRITE Negative (Negative); SPECIFIC GRAVITY >= 1.030 (1.001-1.030)
[2024-06-09 17:36] LABS: ALKALINE PHOSPHATASE 72 U/L (46-116); BUN 6 mg/dl (9-23); CHLORIDE 104 mmol/L (98-107); LIPASE 21 U/L (12-53); POTASSIUM 4.5 mmol/L (3.4-5.1); TOTAL PROTEIN 7.5 gm/dL (6.0-8.0)
[2024-06-09 17:38] LABS: EPITHELIAL CELLS 0-2; WBC 21-30 wbc/hpf (0-5)
[2024-06-09 17:40] LABS: SGPT/ALT < 7 U/L (5-49)
[2024-06-09] MEDS ORDERED: SODIUM CHLORIDE 0.9% 1,000 ML IV ONE (17:45)
[2024-06-09 18:51] VITALS: BP 108/72
[2024-06-09] MEDS ORDERED: Ceftriaxone Sodium 1 GM/10 ML SYR IV ONE (19:20)
[2024-06-09] MEDS ORDERED: SEPTDS PO (19:37)
[2024-06-09] MEDS ORDERED: Sulfamethoxazole/Trimethopri 1 TAB TAB PO ONE (19:40)
== END 2024-06-09 20:15 | disposition home or self-care (01) ==
LOC: ED 16:05
PROVIDERS: Physician Assistant Medical
DX: N41.2 Abscess of prostate (principal); E10.9 Type 1 diabetes mellitus without complications; K21.9 Gastro-esophageal reflux disease without esophagitis; F90.9 Attention-deficit hyperactivity disorder, unspecified type; N50.819 Testicular pain, unspecified; K59.00 Constipation, unspecified; Z79.4 Long term (current) use of insulin; Z90.89 Acquired absence of other organs

== ENCOUNTER 2024-06-27 09:25 | Emergency (ER) | payer OTHER ==
[~2024-06-27] VITALS: Ht 182.8 cm; Wt 81.6 kg
[2024-06-27 09:51] VITALS: BP 108/68
== END 2024-06-27 11:35 | disposition home or self-care (01) ==
LOC: ED 09:25
DX: T82.598A Other mechanical complication of other cardiac and vascular devices and implants, initial encounter (principal); K21.9 Gastro-esophageal reflux disease without esophagitis; E10.9 Type 1 diabetes mellitus without complications; F90.9 Attention-deficit hyperactivity disorder, unspecified type; Z90.89 Acquired absence of other organs; Y82.8 Other medical devices associated with adverse incidents; Y92.89 Other specified places as the place of occurrence of the external cause

== ENCOUNTER → 2024-07-01 | Outpatient (CLI) | payer OTHER ==
[~2024-07-01] MED LIST changes: +HYDROXYZINE PAM25 M1 PO
== END | disposition home or self-care (01) ==
LOC: CT 11:00
PROVIDERS: ATTEND Urology
DX: N41.2 Abscess of prostate (principal)

== ENCOUNTER 2024-09-19 13:10 | Emergency (ER) | payer OTHER ==
[~2024-09-19] VITALS: Ht 182.9 cm; Wt 77.6 kg
[2024-09-19 13:19] VITALS: BP 121/64
== END 2024-09-19 14:07 | disposition home or self-care (01) ==
LOC: ED 13:10
DX: S02.2XXA Fracture of nasal bones, initial encounter for closed fracture (principal); Z79.899 Other long term (current) drug therapy; Z98.890 Other specified postprocedural states; E11.9 Type 2 diabetes mellitus without complications; Z79.4 Long term (current) use of insulin; W31.89XA Contact with other specified machinery, initial encounter; Y93.89 Activity, other specified; Y92.69 Other specified industrial and construction area as the place of occurrence of the external cause; Y99.0 Civilian activity done for income or pay

== ENCOUNTER → 2024-09-29 | Outpatient (CLI) | payer OTHER | END | disposition home or self-care (01) | LOC: US 10:00 | PROVIDERS: ATTEND Urology | DX: N41.2 Abscess of prostate (principal); N39.0 Urinary tract infection, site not specified ==

== ENCOUNTER 2025-05-17 18:47 | Emergency (ER) | payer OTHER ==
[~2025-05-17] VITALS: Wt 77.6 kg
[2025-05-17] MEDS ORDERED: SERTRALINE HYD100 MG PO (19:35)
[2025-05-17] MEDS ORDERED: 'CLONIDINE0.1 MG PO (19:36)
[2025-05-17] MEDS ORDERED: MELOXICAM15 MG PO (19:37)
[2025-05-17] MEDS ORDERED: HUMALOG 751 UNIT/0.0 SC (19:37)
[2025-05-17] MEDS ORDERED: ALPRAZolam 0.25 MG TAB PO ONE (19:45)
[2025-05-17 19:57] LABS: BASO # 0.1 10*3/uL (0.0-0.1); BASO % 1.0 % (0.0-1.0); EOS # 0.1 10*3/uL (0.0-0.4); EOS % 2.0 % (1.0-4.0); MEAN CELL VOLUME 87.8 fl (80.0-94.0); MEAN CORPUSCULAR HGB 29.8 pg (27.0-31.0); MEAN PLATELET VOLUME 10.5 fl (9.6-12.3); MONO # 0.7 10*3/uL (0.1-1.0); MONO % 9.5 % (3.0-9.0); NEUT # 3.6 10*3/uL (2.3-7.9); NEUT % 51.3 % (47.0-73.0); NUCLEATED RED BLOOD CELL 0.0 % (0.0-0.0); NUCLEATED RED BLOOD CELL 0.0 10*3/uL (0.0-0.0); PLATELET COUNT AUTOMATED 291 10*3/uL (130-400); RED CELL DISTRI WIDTH 12.2 % (0-14.5)
[2025-05-17 20:16] LABS: BUN 7 mg/dl (9-23)
[2025-05-17 21:04] VITALS: BP 123/69
== END 2025-05-17 21:32 | disposition home or self-care (01) ==
LOC: ED 18:47
PROVIDERS: Emergency Medicine
DX: F41.9 Anxiety disorder, unspecified (principal); T46.5X5A Adverse effect of other antihypertensive drugs, initial encounter; E10.649 Type 1 diabetes mellitus with hypoglycemia without coma; K21.9 Gastro-esophageal reflux disease without esophagitis; F17.210 Nicotine dependence, cigarettes, uncomplicated; Z79.899 Other long term (current) drug therapy; Z79.4 Long term (current) use of insulin; Y92.89 Other specified places as the place of occurrence of the external cause